=== PATIENT | female | born 1970 | race Caucasian/White ===

== ENCOUNTER → 2024-10-27 14:17 | Outpatient (ROUT) | payer SELFPAY ==
[2024-10-27 14:41] LABS: Appearance Urine UA CLOUDY; Bilirubin Urine UA NEGATIVE (NEGATIVE); Color Urine UA YELLOW; Glucose Urine UA 3+ g/dL (Negative); Ketones Urine UA NEGATIVE (NEGATIVE); Leukocyte Esterase Urine UA NEGATIVE (NEGATIVE); Nitrite Urine UA NEGATIVE (Negative); Occult Blood Urine UA TRACE-INTACT (Negative); Protein Urine UA 3+ (Negative); Urobilinogen Urine UA 0.2 E.U./dL (0.2)
[2024-10-27 14:54] LABS: RBC Urine 1-5/HPF (0-5/HPF); Urine Volume 10mL (spun); WBC Urine 30-100/HPF (0-5/HPF)
[2024-10-27 14:55] LABS: Bacteria Urine Many (>30); Culture Indicated Urine Specimen Cultured; Squamous Epithelial Cell Urine 0-1 /HPF (0-5/HPF)
== END ==
LOC: LAB 14:29
DX: R30.0 Dysuria (principal); R30.9 Painful micturition, unspecified
CPT/HCPCS: 81001; 87077; 87086; 87186

== ENCOUNTER → 2024-11-21 09:35 | Outpatient (ROUT) | payer SELFPAY ==
[2024-11-21 10:16] LABS: BUN Creatinine Ratio 33.8 (6-22); Blood Urea Nitrogen 51 mg/dL (7-17); Calcium 9.2 mg/dL (8.4-10.2); Carbon Dioxide 25 mmol/L (22-32); Chloride 106 mmol/L (98-107); Estimated Glomerular Filt Rate 41 mL/min (>60); Glucose 72 mg/dL (70-99); HEMOLYSIS < 15 (0-50); Potassium 4.7 mmol/L (3.4-5.1); Sodium 140 mmol/L (137-145)
[2024-11-21 10:25] LABS: Add Manual Diff / Slide Review NO; Basophils Absolute Auto 0 /uL (0-100); Basophils Percent Auto 0.6 % (0-2); Eosinophils Absolute Auto 200 /uL (0-450); Hematocrit 31.7 % (36-46); Hemoglobin 10.8 g/dL (12.0-16.0); Lymphocytes Absolute Auto 2200 /uL (1100-4500); Lymphocytes Percent Auto 28.8 % (25-40); Mean Corpuscular HGB Conc 34.1 % (30-36); Mean Corpuscular Hemoglobin 29.2 PG (26-34); Mean Corpuscular Volume 85.4 fL (80-100); Monocytes Absolute Auto 500 /uL (0-900); Monocytes Percent Auto 6.3 % (3-14); Neutrophils Absolute Auto 4700 /uL (1500-7000); Neutrophils Percent Auto 61.3 % (50-75); Platelet Count 267 X10^3/uL (150-400); Red Blood Cell Count 3.71 X10^6/uL (4.0-5.2); Red Cell Distribution Width 13.8 % (11.6-14.8); White Blood Cell Count 7.6 X10^3/uL (4.5-11.0)
== END ==
LOC: LAB 09:35
PROVIDERS: Visit Provider Registered Nurse
DX: E11.9 Type 2 diabetes mellitus without complications (principal); I50.9 Heart failure, unspecified
CPT/HCPCS: 36415; 80048; 83036; 85025

== ENCOUNTER → 2024-12-12 08:02 | Outpatient (ROUT) | payer SELFPAY ==
[2024-12-12 08:49] LABS: BUN Creatinine Ratio 31.9 (6-22); Blood Urea Nitrogen 43 mg/dL (7-17); Calcium 8.5 mg/dL (8.4-10.2); Carbon Dioxide 24 mmol/L (22-32); Chloride 102 mmol/L (98-107); Estimated Glomerular Filt Rate 46 mL/min (>60); Glucose 305 mg/dL (70-99); HEMOLYSIS < 15 (0-50); Potassium 5.1 mmol/L (3.4-5.1); Sodium 132 mmol/L (137-145)
[2024-12-12 09:20] LABS: Thyroid Stimulating Hormone 8.86 uIU/mL (0.47-4.68)
== END ==
PROVIDERS: Visit Provider Registered Nurse
DX: I50.9 Heart failure, unspecified (principal); E03.9 Hypothyroidism, unspecified
CPT/HCPCS: 36415; 80048; 83735; 84443

== ENCOUNTER → 2025-02-06 07:28 | Outpatient (ROUT) | payer SELFPAY ==
[2025-02-06 07:39] LABS: Hematocrit 31.8 % (36-46); Hemoglobin 10.9 g/dL (12.0-16.0); Mean Corpuscular HGB Conc 34.2 % (30-36); Mean Corpuscular Hemoglobin 29.1 PG (26-34); Mean Corpuscular Volume 85.1 fL (80-100); Platelet Count 254 X10^3/uL (150-400)
[2025-02-06 07:51] LABS: Blood Urea Nitrogen 49 mg/dL (7-17); Calcium 8.7 mg/dL (8.4-10.2); Carbon Dioxide 24 mmol/L (22-32); Chloride 103 mmol/L (98-107); Estimated Glomerular Filt Rate 35 mL/min (>60); Glucose 286 mg/dL (70-99); HEMOLYSIS < 15 (0-50); Potassium 4.7 mmol/L (3.4-5.1); Sodium 134 mmol/L (137-145)
[2025-02-06 08:01] LABS: NT-proBNP (BNP-Adult 18+) 740 pg/mL (<125)
== END ==
PROVIDERS: Visit Provider Registered Nurse
DX: I11.0 Hypertensive heart disease with heart failure (principal); I50.9 Heart failure, unspecified; R60.9 Edema, unspecified
CPT/HCPCS: 36415; 80048; 83880; 85027

== ENCOUNTER → 2025-03-18 10:09 | Outpatient (CLI) | payer MEDICAID, OTHER, SELFPAY | PROVIDERS: Family Provider Hospitalist; PCP Hospitalist; Referring Provider Registered Nurse; Visit Provider Surgery | DX: E11.621 Type 2 diabetes mellitus with foot ulcer (principal); L97.512 Non-pressure chronic ulcer of other part of right foot with fat layer exposed; L84 Corns and callosities; L98.8 Other specified disorders of the skin and subcutaneous tissue; E11.40 Type 2 diabetes mellitus with diabetic neuropathy, unspecified; I50.9 Heart failure, unspecified; E11.22 Type 2 diabetes mellitus with diabetic chronic kidney disease; N18.31 Chronic kidney disease, stage 3a; G40.009 Localization-related (focal) (partial) idiopathic epilepsy and epileptic syndromes with seizures of localized onset, not intractable, without status epilepticus | CPT/HCPCS: 11042; 87070; 87075; 87077; 87147; 87186; 87205; 99203; 99214 ==

== ENCOUNTER → 2025-03-20 13:11 | Outpatient (CLI) | payer OTHER, MEDICAID, SELFPAY ==
--- NOTE | 2025-03-20 13:16 | DI.RAD.S_ITS ---
PROCEDURE: XR FOOT RT MIN 3V INDICATIONS: non-healing ulcer right great toe TECHNIQUE: 3 views of the foot were acquired. COMPARISON: None. FINDINGS: Bones: Well-circumscribed radiolucent foci are present in the 1st proximal and distal phalanges: 1 cm proximal phalanges and 0.8 cm in the distal phalanges. These are most likely degenerative cysts. There would be atypical appearance for osteomyelitis Joints: Mild degeneration throughout the midfoot 1st MTP and all interphalangeal joints Soft tissues: Marked diffuse soft tissue swelling IMPRESSION: Marked diffuse soft swelling likely indicate cellulitis or less likely edema Radiolucent foci in the 1st proximal and distal phalanges are likely degenerative. If there is deep point tenderness in these bones , then consider MRI to evaluate for osteomyelitis Dictated by: Pedro Ahuja M.D. on 03/21/2025 at 10:58 Approved by: Pedro Ahuja M.D. on 03/21/2025 at 11:01
== END ==
LOC: RAD 13:14
PROVIDERS: Family Provider Hospitalist; PCP Hospitalist; Referring Provider Surgery; Visit Provider Surgery
DX: E11.621 Type 2 diabetes mellitus with foot ulcer (principal); M19.071 Primary osteoarthritis, right ankle and foot; M79.89 Other specified soft tissue disorders
CPT/HCPCS: 73630

== ENCOUNTER → 2025-03-21 10:57 | Outpatient (CLI) | payer OTHER, MEDICAID, SELFPAY | LOC: WC 10:57 | PROVIDERS: Family Provider Hospitalist; PCP Hospitalist; Referring Provider Hospitalist; Visit Provider Surgery | DX: E11.621 Type 2 diabetes mellitus with foot ulcer (principal); L97.512 Non-pressure chronic ulcer of other part of right foot with fat layer exposed; L84 Corns and callosities | CPT/HCPCS: 99213 ==

== ENCOUNTER → 2025-03-25 11:06 | Outpatient (CLI) | payer OTHER, MEDICAID, SELFPAY | LOC: WC 11:10 | PROVIDERS: Family Provider Hospitalist; PCP Hospitalist; Referring Provider Hospitalist; Visit Provider Surgery | DX: E11.621 Type 2 diabetes mellitus with foot ulcer (principal); L97.512 Non-pressure chronic ulcer of other part of right foot with fat layer exposed; L84 Corns and callosities; R60.0 Localized edema; E11.40 Type 2 diabetes mellitus with diabetic neuropathy, unspecified | CPT/HCPCS: 11042 ==

== ENCOUNTER → 2025-03-27 07:39 | Outpatient (ROUT) | payer OTHER, MEDICAID, SELFPAY ==
[2025-03-27 08:12] LABS: Blood Urea Nitrogen 52 mg/dL (7-17); Calcium 8.6 mg/dL (8.4-10.2); Carbon Dioxide 25 mmol/L (22-32); Chloride 105 mmol/L (98-107); Estimated Glomerular Filt Rate 31 mL/min (>60); Glucose 114 mg/dL (70-99); HEMOLYSIS < 15 (0-50); Magnesium 2.1 mg/dL (1.6-2.3); Potassium 4.4 mmol/L (3.4-5.1); Sodium 138 mmol/L (137-145)
== END ==
PROVIDERS: Family Provider Hospitalist; PCP Hospitalist; Visit Provider Registered Nurse
DX: R60.9 Edema, unspecified (principal); I10 Essential (primary) hypertension
CPT/HCPCS: 36415; 80048; 83735

== ENCOUNTER → 2025-04-02 15:02 | Outpatient (CLI) | payer OTHER, MEDICAID, SELFPAY | PROVIDERS: Family Provider Hospitalist; PCP Hospitalist; Referring Provider Hospitalist; Visit Provider Surgery | DX: E11.621 Type 2 diabetes mellitus with foot ulcer (principal); L97.512 Non-pressure chronic ulcer of other part of right foot with fat layer exposed; E11.42 Type 2 diabetes mellitus with diabetic polyneuropathy; L84 Corns and callosities; R60.0 Localized edema; Z91.198 Patient's noncompliance with other medical treatment and regimen for other reason | CPT/HCPCS: 11042 ==

== ENCOUNTER 2025-04-05 14:20 | Inpatient (IN) | payer OTHER, MEDICAID, SELFPAY ==
[2025-04-05] VITALS (17 sets, daily range): BP systolic 142–197; BP diastolic 76–163; PULSE 106–115; RESP 17–32; TEMP 36.9–39.4; O2SAT 90–94; BMI 47.2
--- NOTE | 2025-04-05 14:48 | EKG_ITS ---
[address] [address] Test Date: 2025-04-05 Pat Name: October Department: [facility] Room: Gender: Female Clerical Administrator: YARELIS : 1970 Requested By: Order Number: [id number] Reading MD: Pedro Kuhn MD Measurements Intervals [place] Rate: 114 P: 62 GA: 180 QRS: 220 QRSD: 144 T: 23 QT: 340 QTc: 468 Interpretive Statements Sinus tachycardia Right bundle branch block NO PRIOR TRACING Electronically Signed On 04-05-2025 16:37:30 PDT by Pedro Kuhn MD
--- NOTE | 2025-04-05 14:48 | DI.RAD.S_ITS ---
PROCEDURE: XR CHEST 2V INDICATIONS: generalized weakness TECHNIQUE: 2 views of the chest were acquired. COMPARISON: [facility], CR, XR CHEST 1 VIEW, 10/08/2024, 22:35. FINDINGS: Surgical changes and devices: None. Lungs and pleura: Prominent interstitial markings. No pleural effusions or pneumothorax. Mediastinum: Mediastinal contours are normal. Heart size is enlarged. Bones and chest wall: No suspicious bony abnormalities. Soft tissues appear unremarkable. IMPRESSION: Cardiomegaly with prominent interstitial markings concerning for pulmonary edema. Dictated by: Leo Chavez M.D. on 04/05/2025 at 16:02 Approved by: Leo Chavez M.D. on 04/05/2025 at 16:02
--- NOTE | 2025-04-05 14:53 | ED.WEAKNESS ---
HPI - Weakness General Chief complaint: Weakness Stated complaint: Weakness, n/v Time Seen by Provider: 04/05/25 14:48 Source: patient and EMS Mode of arrival: EMS Limitations: other (A&O x 2) History of Present Illness HPI Narrative: Patient is a 54-year-old female brought in by EMS from long term for generalized weakness. Past medical history significant for diabetes, hypertension, wound care through her right lower extremity. HPI obtained from EMS as well as patient who states that she has been not feeling well for the last 2 days to include generalized weakness, nausea, vomiting, and cough. She reports possible dyspnea as well as chest pain however states that she is not currently having any chest pain. History is limited due to patient's acute condition as well as her medical literacy. EMR data is very limited as patient has no other encounters in this medical system. Per medication review, she is on insulin, levothyroxine, aspirin, and gabapentin. Related Data Home Medications ?Medication ?Instructions ?Recorded ?Confirmed Unobtainable 04/05/25 04/05/25 Allergies Allergy/AdvReac Type Severity Reaction Status Date / Time No Known Drug Allergies Allergy Verified 04/05/25 14:51 Review of Systems Review of Systems Narrative: See HPI. Patient History Medical History (Updated 04/05/25 @ 18:03 by Efren Li MD) Diabetic peripheral neuropathy CKD (chronic kidney disease) Normocytic anemia Diabetes mellitus HTN (hypertension) Exam Initial Vital Signs Initial Vital Signs: Vital Signs Pulse Rate 114 H 04/05/25 14:43 Respiratory Rate 20 04/05/25 14:43 Pulse Oximetry 94 04/05/25 14:43 Patient tachycardic, tachypneic, meets SIRS criteria. Const Other: Appears disheveled, hair is matted and tangled. HENFL Head: normocephalic and atraumatic Mouth: other (Dry mucus membranes, fractured left anterior incisor.) Eyes Other: Open eyes to command. No lateralizing gaze. Chest Other: No rashes. Resp Other: Clear to auscultation bilaterally. No increased work of breathing. Cardio Other: Tachycardic with no murmurs rubs or gallops. GI Other: Obese, soft, nondistended, nontender to palpation, no rebound or guarding. Abdominal exam is not peritonitic. Other: Patient is wearing diaper, the skin was examined without any erythema or skin breakdown. Skin Other: Patient has chronic appearing excoriation in upper back. Aside from this, her skin appears normal. No sacral decubitus breakdown. Extrem Other: Bilateral upper extremity appears mildly to moderately contracted, she has a resting tremor. Right lower extremity heavily bandaged and wrapped. Dressing taken down, there is a eschar on the inferior lateral portion of the right great toe that appears well healed. She has no point tenderness at this area. Her entire left foot to her mid-proximal tibia has erythema with irregular borders that blanches and is warm to the touch. She has limited sensation in the right lower extremity, decreased sensation in the left. Bilateral nonpitting edema up to mid tibia. Motor intact bilaterally. Psych Other: Patient appears disheveled, her hair is very tangled. She otherwise is wearing a nightgown. Scores HEART Score Heart Score history: Slightly Suspicious Heart Score Age: 45-64 years old qSOFA 0-1 Not High Risk 1-3 High risk Citation:: Heart rate 114, respiratory rate 31, meets qSOFA score. Course Course Course Narrative: Patient is a 54-year-old female with a history of diabetes, hypertension, Decision to Admit Date: 04/05/25 Decision to Admit time: 17:17 Additional Information: Dr. Li called and accepted patient. Orders Ordered: ED Orders 04/05/25 14:48 CXR [XR chest 2V] Stat BNP [NT-proBNP (BNP-Adult 18+)] Stat Urinalysis and Microscopic Stat EKG-12 Lead Stat 04/05/25 14:52 VBG [Venous Blood Gas] STAT 04/05/25 14:53 Ketones (Beta-Hydroxybutyrate) Stat 04/05/25 15:16 Blood Culture Stat Complete Blood Count AUTO DIFF Stat Comprehensive Metabolic Panel Stat Lactate (Lactic Acid) Stat Procalcitonin Stat Respiratory Panel (Film Array) Stat Troponin & CK Cardiac Panel Stat 04/05/25 15:50 CT LE RT wo con Stat 04/05/25 16:38 Urine Culture Stat Enoxaparin Sodium (Enoxaparin 30 Mg/0.3 Ml Syringe) 30 mg SUBCUT DAILY WANDA Lactated Ringer's (Lactated Ringers) 1,641 mls @ 547 mls/hr 30 ml/kg infuse over 3 hr (1641 ml) IV NOW ONE Stop: 04/05/25 18:15 Last Infusion: 04/05/25 17:49 Dose: 0 mls/hr Vancomycin HCl/Dextrose (Vancomycin) 2,000 mg in 400 mls @ 200 mls/hr IV NOW ONE Stop: 04/05/25 18:34 Last Infusion: 04/05/25 17:49 Dose: 0 mls/hr Piperacillin Sod/Tazobactam (Sod 4.5 gm/ Sodium Chloride) 100 mls @ 25 mls/hr IV Q8H WANDA Sodium Chloride (Normal Saline 0.9%) 1,000 mls @ 100 mls/hr IV CONT WANDA Insulin Human Lispro (Insulin Lispro 100 Unit/Ml 3ml Vial) 0 unit SUBCUT ACHS WANDA; Protocol Naloxone HCl (Naloxone 0.4 Mg/Ml Vial) 0.2 mg IV Q2MIN PRN PRN Reason: Opiate Reversal Ondansetron HCl (Ondansetron 4 Mg/2 Ml Inj) 4 mg IV Q8HR PRN PRN Reason: Nausea And Vomiting Oxycodone HCl (Oxycodone Ir 5 Mg Tablet) 5 mg PO Q3H PRN PRN Reason: Pain, Moderate (4-6) Vancomycin HCl (Vancomycin Per Pharmacy) 1 request MISC NOW PRN PRN Reason: sepsis Discontinued Medications Piperacillin Sod/Tazobactam (Sod 4.5 gm/ Sodium Chloride) 100 mls @ 200 mls/hr IV NOW ONE Stop: 04/05/25 15:17 Last Infusion: 04/05/25 17:37 Dose: Infused Vancomycin HCl (Vancomycin Per Pharmacy) 1 request MISC NOW PRN PRN Reason: Diabetic wound, septic, cellut Reevaluation(s) Reevaluation #1: Patient meets criteria for SIRS with tachycardia, tachypnea, EMS temperature of 101F (although she was normal thermic in the ER). Will initiate sepsis protocol. Reevaluation #2: Patient re-evaluated. Elevated blood pressure reading secondary to 2 her laying on that extremity. Given pulmonary edema, tachypnea, elevated BNP, informed nursing staff to decrease fluid rate. I palpated the region where her diabetic foot ulcer was to determine if there was point tenderness, however patient has neuropathy is significant enough for her not to to be able to feel me palpating. Regardless, MRI should be considered when patient is admitted to evaluate for osteomyelitis. Reevaluation #3: Patient informed that she will be admitted to hospital for further care and management. Consultations Consultation #1: Patient admitted to hospitalist for further care and management. Vital Signs Vital signs: Vital Signs - 8 hr 04/05/25 14:43 04/05/25 14:44 04/05/25 14:44 Temperature Pulse Rate 114 H 115 H Respiratory Rate 20 31 H Blood Pressure 174/76 H Pulse Oximetry 94 93 Oxygen Delivery Method 04/05/25 14:51 04/05/25 15:00 04/05/25 15:05 Temperature 98.4 F Pulse Rate 115 H 115 H 114 H Respiratory Rate 18 32 H 30 H Blood Pressure 174/76 H Pulse Oximetry 93 93 94 Oxygen Delivery Method Room Air 04/05/25 15:05 04/05/25 15:42 04/05/25 15:50 Temperature Pulse Rate 114 H 113 H Respiratory Rate 28 H Blood Pressure 181/78 H Pulse Oximetry 94 94 Oxygen Delivery Method 04/05/25 15:50 04/05/25 16:00 04/05/25 16:01 Temperature Pulse Rate 113 H 113 H Respiratory Rate 26 H 22 Blood Pressure 172/88 H Pulse Oximetry 92 94 Oxygen Delivery Method 04/05/25 16:01 04/05/25 16:30 04/05/25 16:42 Temperature Pulse Rate 114 H 115 H Respiratory Rate 30 H 28 H Blood Pressure 190/91 H Pulse Oximetry 92 92 Oxygen Delivery Method 04/05/25 16:42 04/05/25 17:00 04/05/25 17:01 Temperature Pulse Rate 114 H 114 H Respiratory Rate 20 20 Blood Pressure 197/163 H Pulse Oximetry 94 94 Oxygen Delivery Method 04/05/25 17:01 Temperature Pulse Rate Respiratory Rate Blood Pressure 167/123 H Pulse Oximetry Oxygen Delivery Method MDM - Weakness Differential Diagnosis Differential diagnosis: Likely other (ACS, infection to include viral versus bacterial upper respiratory illness, urinary tract infection, cellulitis versus erysipelas, osteomyelitis, DKA, other.) Medical Records Medical records narrative: EMR reviewed. Patient does not have any records in this EHR. Plain films of the right foot obtained on 03/20/2025 was reviewed. At that time there was marked diffuse soft tissue swelling concerning for cellulitis versus edema. There was a radiolucent foci in the 1st proximal and distal phalanges that was read as degenerative. Chest x-ray obtained today had marked pulmonary interstitial markings concerning for pulmonary edema. Lab Data Lab results narrative: CBC with leukocytosis, left shift and neutrophilia. Patient is anemic (HBg 9.6 down from 10.9 on 02/06/25) down from baseline per EMR. No thrombocytopenia. CMP significant for hyperglycemia (glucose 179) SASHA (Cr 1.99), decreased GFR. BNP 1500. Alk-phos and total creatine kinase is elevated. Procalcitonin elevated at 1.16. 04/05/25 15:20 04/05/25 15:20 Labs: Lab Results 04/05/25 04/05/25 04/05/25 Range/Units 15:20 15:59 16:38 WBC 16.9 H (4.5-11.0) X10^3/uL RBC 3.42 L (4.0-5.2) X10^6/uL Hgb 9.6 L (12.0-16.0) g/dL Hct 28.8 L (36-46) % MCV 84.1 (80-100) fL MCH 28.2 (26-34) PG MCHC 33.5 (30-36) % RDW 13.5 (11.6-14.8) % Plt Count 221 (150-400) X10^3/uL Neut % (Auto) 93.2 H (50-75) % Lymph % (Auto) 3.1 L (25-40) % [place] % (Auto) 3.3 (3-14) % Eos % (Auto) 0.1 L (2-4) % Baso % (Auto) 0.3 (0-2) % Neut # (Auto) 03628 H (3030-6645) /uL Lymph # (Auto) 500 L (8805-4543) /uL [place] # (Auto) 600 (0-900) /uL Eos # (Auto) 0 (0-450) /uL Baso # (Auto) 100 (0-100) /uL Sodium 136 L (137-145) mmol/L Potassium 4.4 (3.4-5.1) mmol/L Chloride 102 (98-107) mmol/L Carbon Dioxide 25 (22-32) mmol/L BUN 59 H (7-17) mg/dL Creatinine 1.99 H (0.52-1.04) mg/dL Estimated GFR 29 L (>60) mL/min BUN/Creatinine Ratio 29.6 H (6-22) Glucose 179 H (70-99) mg/dL Lactate 0.9 (0.7-2.1) mmol/L Calcium 8.5 (8.4-10.2) mg/dL Total Bilirubin 0.5 (0.2-1.3) mg/dL AST 30 (14-36) IU/L ALT 23 (<35) IU/L Alkaline Phosphatase 186 H (38-126) U/L Total Creatine Kinase 189 H (30-135) U/L Troponin I < 0.012 (0.01-0.034) ng/mL NT-Pro-B Natriuret Pep 1500 H (<125) pg/mL Total Protein 7.6 (6.3-8.2) g/dL Albumin 3.9 (3.5-5.0) g/dL Globulin 3.7 (1.7-4.1) g/dL Albumin/Globulin Ratio 1.1 (1.0-2.8) Procalcitonin 1.16 H (<0.5) ng/mL Urine Color Yellow Urine Appearance Clear Urine pH 5.5 (4.5-8.0) Ur Specific [place] 1.015 (1.000-1.035) Urine Protein 3+ H (Negative) Urine Glucose (UA) 3+ H (Negative) g/dL Urine Ketones Negative (NEGATIVE) Urine Occult Blood 2+ H (Negative) Urine Nitrate Negative (Negative) Urine Bilirubin Negative (NEGATIVE) Urine Urobilinogen 0.2 (0.2) E.U./dL Ur Leukocyte Esterase Negative (NEGATIVE) Urine RBC 1-5/hpf (0-5/HPF) Urine WBC 10-30/hpf H (0-5/HPF) Ur Squamous Epith Cells None seen (0-5/HPF) Ur Transition Epith Cell None seen (0-5/HPF) Ur Renal Epithelial Cell None seen (0-1/HPF) Urine Bacteria Many (>30) H (None) Ur Culture Indicated? Specimen cultured Vol Urine Centrifuged 10ml (spun) Ketones 0.25 (<0.27) mmol/L Chlamy pneumoniae PCR Not detected (Not Detect) Adenovirus (PCR) Not detected (Not Detect) B. pertussis DNA (PCR) Not detected (Not Detect) B.parapertussis DNA PCR Not detected (Not Detecte) Coronavirus OC43 (PCR) Not detected (Not Detect) Coronavirus HKU1 (PCR) Not detected (Not Detect) Coronavirus 229E (PCR) Not detected (Not Detect) SARS-CoV-2 (PCR) Not detected (Not Detecte) Coronavirus NL63 (PCR) Not detected (Not Detect) Human Metapneumovir PCR Not detected (Not Detect) Influenza Type A (PCR) Not detected (Not Detect) Influenza Type B (PCR) Not detected (Not Detect) M. pneumoniae (PCR) Not detected (Not Detect) Parainfluenza 1 (PCR) Not detected (Not Detect) Parainfluenza 2 (PCR) Not detected (Not Detect) Parainfluenza 3 (PCR) Not detected (Not Detect) Parainfluenza 4 (PCR) Not detected (Not Detect) RSV (PCR) Not detected (Not Detect) Entero/Rhino (PCR) Not detected (Not Detect) Imaging Data CT right lower extremity without concerns for osteomyelitis.: My Impression: There is some diffuse subcutaneous soft tissue stranding and skin thickening in the distal right lower extremity. Given these findings as well as patient's clinical exam of erythema and warmth, more likely consistent with cellulitis versus edema. Radiologist Impression: No?findings?concerning?for?osteomyelitis.??Diffuse?subcutaneous?edema?and?skin?thickening,?most?pronounced?within?the?foot?and?1st?digit?concerning?for?cellulitis?versus?bland?edema,?recommend?clinical?correlation.??No?organized?fluid?collections ECG Data Interpretation: 16:22: EKG with sinus tachycardia, heart rate 114, normal intervals, right bundle branch block. No other EKGs in cardio server systems administrator to compare to. [facility] Narrative Medical decision making narrative: Patient is a 54-year-old female presents via EMS from [facility] with history of diabetes complicated by neuropathy and diabetic foot ulcer and her right great toe undergoing wound care, hypothyroidism, with 2 day history of generalized weakness, nausea, vomiting. On initial presentation by EMS, patient was hypertensive SBP 180s, Tm 101? F, and an elevated glucose. Upon initial evaluation, patient remained hypertensive in the 180s, tachycardic to 114, tachypneic in the 30s, she was normothermic. Sepsis protocol was initiated and fluids and Zosyn was ordered. Her physical exam findings was significant for A&O x 2 (she knew she was at the hospital, Leann was president, thought it was 1950s). Physical exam finding was significant for eschar on her inferior right great toe with warmth and erythema of her right lower extremity extending to the mid proximal tibia. Given these findings as well as patient's history of diabetes, vancomycin was added. Labs were significant for leukocytosis with left shift, mild anemia, no thrombocytopenia. Her glucose was 179, and she had an SASHA (Cr 1.99) with decreased GFR, elevated alkaline phosphatase, elevated creatinine kinase, proBNP 1500, pro maurizio 1.16. Her troponins were undetectable with an EKG revealing sinus tachycardia and a right bundle branch block. Chest x-ray was consistent with pulmonary edema, therefore the rate of her fluids was decreased. I reviewed her prior right foot x-ray with possible foci concerning for osteomyelitis. Given patient's was insensate in her lower extremities, CT scan was obtained and consistent with cellulitis. Patient was admitted to Dr. Li for further care and management. Critical Care Time Critical Care Time Attestation: 45 minutes: Evaluating patient, obtaining information from assisted living facility. Discharge Plan Departure Patient Disposition: Admitted As Inpatient Clinical Impression: Sepsis, Elevated brain natriuretic peptide (BNP) level, SASHA (acute kidney injury), Pulmonary edema, Cellulitis Admit Date/Time: 04/05/25 17:18 Admit Provider: Efren Li
[2025-04-05 15:33] LABS: Add Manual Diff / Slide Review NO; Hematocrit 28.8 % (36-46); Hemoglobin 9.6 g/dL (12.0-16.0); Lymphocytes Absolute Auto 500 /uL (1100-4500); Mean Corpuscular HGB Conc 33.5 % (30-36); Mean Corpuscular Hemoglobin 28.2 PG (26-34); Mean Corpuscular Volume 84.1 fL (80-100); Platelet Count 221 X10^3/uL (150-400)
[2025-04-05 15:49] LABS: Alanine Aminotransferase 23 IU/L (<35); Albumin 3.9 g/dL (3.5-5.0); Albumin Globulin Ratio 1.1 (1.0-2.8); Alkaline Phosphatase 186 U/L (38-126); Blood Urea Nitrogen 59 mg/dL (7-17); Calcium 8.5 mg/dL (8.4-10.2); Carbon Dioxide 25 mmol/L (22-32); Chloride 102 mmol/L (98-107); Creatine Kinase 189 U/L (30-135); Estimated Glomerular Filt Rate 29 mL/min (>60); Globulin 3.7 g/dL (1.7-4.1); Glucose 179 mg/dL (70-99); HEMOLYSIS < 15 (0-50); Potassium 4.4 mmol/L (3.4-5.1); Sodium 136 mmol/L (137-145); Total Protein 7.6 g/dL (6.3-8.2)
[2025-04-05 15:50] LABS: Lactate (Lactic Acid) 0.9 mmol/L (0.7-2.1)
--- NOTE | 2025-04-05 15:50 | DI.CT.S_ITS ---
PROCEDURE: CT LE RT WO CON INDICATIONS: r/o osteomyelitis TECHNIQUE: Noncontrast 3 mm axial sections acquired of the right lower lobe , with coronal and sagittal reformats. COMPARISON: None. FINDINGS: Image quality: Excellent. Bones: No acute osseous abnormalities. No erosive changes are seen. No acute fractures. Significant degenerative changes of the left midfoot, incompletely evaluated. Soft tissues: Mild diffuse subcutaneous stranding and skin thickening, most pronounced involving the foot and 1st digit. No organized fluid collections. IMPRESSION: No findings concerning for osteomyelitis. Diffuse subcutaneous edema and skin thickening, most pronounced within the foot and 1st digit concerning for cellulitis versus bland edema, recommend clinical correlation. No organized fluid collections. Dictated by: Leo Chavez M.D. on 04/05/2025 at 16:40 Approved by: Leo Chavez M.D. on 04/05/2025 at 16:44
[2025-04-05 15:55] LABS: Ketones (Beta-Hydroxybutyrate) 0.25 mmol/L (<0.27)
[2025-04-05] MEDS: LACTATED RINGERS 547 ML IV (15:57)
[2025-04-05 15:59] LABS: NT-proBNP (BNP-Adult 18+) 1500 pg/mL (<125)
[2025-04-05 16:01] LABS: Troponin I < 0.012 ng/mL (0.01-0.034)
[2025-04-05 16:05] LABS: Procalcitonin 1.16 ng/mL (<0.5)
[2025-04-05 16:51] LABS: Appearance Urine UA CLEAR; Bilirubin Urine UA NEGATIVE (NEGATIVE); Color Urine UA YELLOW; Glucose Urine UA 3+ g/dL (Negative); Ketones Urine UA NEGATIVE (NEGATIVE); Leukocyte Esterase Urine UA NEGATIVE (NEGATIVE); Nitrite Urine UA NEGATIVE (Negative); Occult Blood Urine UA 2+ (Negative); Protein Urine UA 3+ (Negative); Specific Gravity Urine UA 1.015 (1.000-1.035); Urobilinogen Urine UA 0.2 E.U./dL (0.2)
[2025-04-05 16:52] LABS: pH Urine UA 5.5 (4.5-8.0)
[2025-04-05 16:59] LABS: Coronavirus NL 63 Not Detected (Not Detect); SARS- CoV-2 Not Detected (Not Detecte)
[2025-04-05] MEDS: PIPERACILLIN/TAZO 4.5 GM in SODIUM CHLORIDE 0.9% 100 ML IV (17:07)
[2025-04-05] MEDS: VANCOMYCIN 2,000 MG/400 ML PIGGYBACK 200 MG IV (17:21)
--- NOTE | 2025-04-05 17:26 | P.HP_ITS ---
History of Present Illness History of Present Illness Date Patient Seen: 04/05/25 Time Patient Seen: 17:26 Chief complaint: Weakness, n/v Narrative: This is a 54 year old female with a history of HTN, peripheral neuropathy and DM who presents with 2 days of nausea/vomiting, a new fever, a right large toe ulcer with related cellulitis and acute worsened mental status. She is oriented to name and place but per her assisted living facility staff is normally fully oriented. She is unable to answer questions with any pertinent facts. She says she does not have a PCP, that she takes no medicines but also says that she has had diabetes. Transition Mgr Rn reports that they were called for 2 days of nausea and vomiting and when they arrived she had a fever of 101, heart rate of 114 and a blood pressure of 181/78 with a respiratory rate of 30. She is receiving a sepsis protocol for her cellulitis. CT scan rules out osteomyelitis at the right large toe ulcer. The white blood count is 16.9 with a hemoglobin of 9.6. The GFR is 29, down from a baseline of 46 earlier this year. The BNP is 1500 and the chest x-ray is consistent with pulmonary edema. The UA has 10-30 wbc's with negative nitrite and negative leukocyte esterase. Physical exam: Alert and oriented to name and location. She is unable to answer more than minimal responses to historical and factual questions. No apparent distress. She is unable to keep her eyes open for a visual check. She is unable to open her mouth very wide. She is experiencing poor dentition. Extraocular muscles and pupillary response can not be accurately checked. No lymph nodes are felt head, neck, supraclavicular area. There is no thyromegaly. JVD is less than 6 cm. No carotid bruits are heard. Heart is regular rate and rhythm without murmur. Lungs are clear to auscultation bilaterally. Abdomen is extremely obese, nontender, no definite organomegaly. Soft. Extremities have 2+ pitting edema bilaterally. There is a very small dry ulceration on the medial side of the right large toe. She has diffuse picking of the skin consistent with cellulitis up to above the knee on that side. The other side looks normal color. Motor function is difficult to assess but appears to be symmetric. Cranial nerve function is also difficult to assess but appears to be normal. There is no tremor. Reflexes are symmetric. Assessment and plan: Right lower extremity diabetic ulcer/cellulitis/sepsis, present on admission. Active. -IV vancomycin and Zosyn. IV fluid. -03/18 wound culture reported as Proteus and MRSA. -lactic acid 0.9 with white blood count 16 0.9 -correctional insulin scale for optimization of blood sugars for healing. -CT scan rules out osteomyelitis of the small ulcer of the right large toe. -blood cultures are pending Diabetes mellitus type 2, present on admission. Chronic. -blood sugars are in the mid to high 100s. -Check A1c, follow up blood sugars a.c. HS, carb choice diet and medium dose correctional lispro scale. Congestive heart failure, present on admission. Active. -no known history of prior congestive heart failure. -elevated BNP of 1500 along with chest x-ray evidence of pulmonary edema. -check echocardiogram -once the sepsis protocol and recovery is confirmed then she will likely need diuresis. Hypertension, present on admission. Active. -assess blood pressure over the next 24 hours and add medication treatment as indicated. Cognitive dysfunction/altered mental status, present on admission. Active. -her facility reports that she is normally fully oriented and conversant. -on admission she is unable to accurately discuss or answer questions. -consider head CT if this does not improve with treatment of the cellulitis/sepsis CKD 3 with SASHA -admitting GFR 29, down from a baseline of 46. -hydrate with IV fluid and follow. DVT prevention with renal dosing enoxaparin. [facility] Medical History (Updated 04/05/25 @ 18:03 by Efren Li MD) Diabetic peripheral neuropathy CKD (chronic kidney disease) Normocytic anemia Diabetes mellitus HTN (hypertension) Social History Smoking Status: Former smoker Comment: The patient gives a history of 2 prior surgeries but is unable to remember which ones. She is unable to discuss her family history stating ?that is private?. She drinks alcohol rarely and does not smoke cigarettes. She does not know why she lives at the assisted living facility at this relatively young age but states ?I would be homeless if I did not live there ?. Meds Home Medications and Allergies Home Medications ?Medication ?Instructions ?Recorded ?Confirmed ?Type Unobtainable 04/05/25 04/05/25 History Allergies Allergy/AdvReac Type Severity Reaction Status Date / Time No Known Drug Allergies Allergy Verified 04/05/25 14:51 Review of Systems Review of Systems Narrative: Positive for fever, rash, nausea, vomiting, confusion, poor memory. Negative for chest pain, shortness breast, nausea, vomiting, abdominal pain, dysuria, bleeding, headache, seizures. Exam Vital Signs (past 8 hours): - 04/05/25 14:43 04/05/25 14:44 04/05/25 14:44 Temperature Pulse Rate 114 H 115 H Respiratory Rate 20 31 H Blood Pressure 174/76 H Pulse Oximetry 94 93 Oxygen Delivery Method 04/05/25 14:51 04/05/25 15:00 04/05/25 15:05 Temperature 98.4 F Pulse Rate 115 H 115 H 114 H Respiratory Rate 18 32 H 30 H Blood Pressure 174/76 H Pulse Oximetry 93 93 94 Oxygen Delivery Method Room Air 04/05/25 15:05 Temperature Pulse Rate Respiratory Rate Blood Pressure 181/78 H Pulse Oximetry Oxygen Delivery Method Oxygen Delivery Method Room Air Objective Labs 04/05/25 15:20 04/05/25 15:20 Labs: Laboratory Results - last 24 hr 04/05/25 04/05/25 04/05/25 15:20 15:59 16:38 WBC 16.9 H RBC 3.42 L Hgb 9.6 L Hct 28.8 L MCV 84.1 MCH 28.2 MCHC 33.5 RDW 13.5 Plt Count 221 Neut % (Auto) 93.2 H Lymph % (Auto) 3.1 L Schleicher % (Auto) 3.3 Eos % (Auto) 0.1 L Baso % (Auto) 0.3 Neut # (Auto) 62543 H Lymph # (Auto) 500 L Schleicher # (Auto) 600 Eos # (Auto) 0 Baso # (Auto) 100 Sodium 136 L Potassium 4.4 Chloride 102 Carbon Dioxide 25 BUN 59 H Creatinine 1.99 H Estimated GFR 29 L BUN/Creatinine Ratio 29.6 H Glucose 179 H Lactate 0.9 Calcium 8.5 Total Bilirubin 0.5 AST 30 ALT 23 Alkaline Phosphatase 186 H Total Creatine Kinase 189 H Troponin I < 0.012 NT-Pro-B Natriuret Pep 1500 H Total Protein 7.6 Albumin 3.9 Globulin 3.7 Albumin/Globulin Ratio 1.1 Procalcitonin 1.16 H Urine Color Yellow Urine Appearance Clear Urine pH 5.5 Ur Specific Hindman 1.015 Urine Protein 3+ H Urine Glucose (UA) 3+ H Urine Ketones Negative Urine Occult Blood 2+ H Urine Nitrate Negative Urine Bilirubin Negative Urine Urobilinogen 0.2 Ur Leukocyte Esterase Negative Ketones 0.25 Chlamy pneumoniae PCR Not detected Adenovirus (PCR) Not detected B. pertussis DNA (PCR) Not detected B.parapertussis DNA PCR Not detected Coronavirus OC43 (PCR) Not detected Coronavirus HKU1 (PCR) Not detected Coronavirus 229E (PCR) Not detected SARS-CoV-2 (PCR) Not detected Coronavirus NL63 (PCR) Not detected Human Metapneumovir PCR Not detected Influenza Type A (PCR) Not detected Influenza Type B (PCR) Not detected M. pneumoniae (PCR) Not detected Parainfluenza 1 (PCR) Not detected Parainfluenza 2 (PCR) Not detected Parainfluenza 3 (PCR) Not detected Parainfluenza 4 (PCR) Not detected RSV (PCR) Not detected Entero/Rhino (PCR) Not detected Assessment & Plan Time-Based Coding :: [TOTAL MINUTES] spent with patient and on the chart (including review of chart, obtaining history, exam, reviewing outside data, placing orders, documenting exam and treatment plan, and counseling patient) on [DATE].
[2025-04-05 17:36] LABS: Culture Indicated Urine Specimen Cultured
--- NOTE | 2025-04-05 17:57 | DI.ECHO.S_ITS ---
[facility] : : [id number] : : [place], : : [place] [id number] : : Phone: [phone] Echocardiogram Report + + :Name: ELLIOTTOctober Study Date: 04/06/2025 Height: 61 in : :[facility] ReadingLocation: Weight: 250 lb : : Gender: Female BSA: 2.1 m2 : :: 1970 Age: 54 yrs BP: 141/70 mmHg: :Reason For Study: CHF : :Ordering Physician: MICHELLE, : :HIGINIO Peralta Performed By: Edgardo Zamora : :Referring: HIGINIO MARTINEZ : + + Interpretation Summary This is a somewhat technically difficult study because patient was not able to lay on her left side. Scanning was done laying on her back and leaning to the right side. Study was enhanced with Definity echo contrast. Normal sinus rhythm with wide QRS complexes. Normal LV size and moderately increased wall thickness. Normal wall motion and LV systolic function. Ejection fraction is 60-65%. Normal chamber sizes. No significant valvular abnormalities. Compared to prior echocardiogram performed at [facility] in [facility], no changes have occurred. Procedure: A two-dimensional transthoracic echocardiogram with color flow and Doppler was performed. A contrast injection of Definity was performed to improve assessment of LV function. The study quality was technically difficult. There is no prior echocardiogram noted for this patient. The patient was in normal sinus rhythm during the exam. Left Ventricle: The left ventricle is normal in size. Left ventricular wall thickness is moderately increased. There is no ventricular septal defect visualized. The ejection fraction is estimated to be 50-55%. There are no focal wall motion abnormalities. Diastolic parameters suggest probable normal left ventricular diastolic function and normal filling pressures. Right Ventricle: The right ventricle is not well visualized. Atria: The left atrial size is normal. Right atrium not well visualized secondary to technical limitations. The interatrial septum is not well visualized. Mitral Valve: The mitral valve leaflets appear mildly thickened. There is no mitral regurgitation noted. Aortic Valve: The aortic valve is trileaflet. The aortic valve is slightly calcified. No aortic regurgitation is present. Tricuspid Valve: The tricuspid valve is not well visualized. No tricuspid regurgitation. Pulmonic Valve: The pulmonic valve is not well seen, but is grossly normal. There is no pulmonic valvular regurgitation. Great Vessels: The aortic root is normal size. The dimensions of the ascending aorta are normal. The pulmonary is not well visualized. The IVC is of normal diameter and collapses greater than 50% with a sniff. This suggests a low right atrial pressure of 3 mm Hg. Pericardium/ Pleura There is no pericardial effusion. MMode/2D Measurements & Calculations LVIDd: 4.9 cm AoV Openin.8 cm LVIDs: 3.1 cm LVOT diam: 2.1 cm IVSd: 1.6 cm Ao root diam: 3.2 cm LVPWd: 1.5 cm asc Aorta Diam: 3.1 cm LV francis. diameter/BSA (cm/m^2): 2.3 LV sys. diameter/BSA (cm/m^2): 1.5 FS: 36.8 % EPSS: 0.86 cm LA A2 area: 16.9 cm2 IVC diam: 2.0 cm LA A4 area: 22.2 cm2 LA length (vol): 6.4 cm LA vol: 49.9 ml LA vol index: 24.0 ml/m2 Doppler Measurements & Calculations Ao V2 max: 158.9 cm/sec LVOT Max Kirill: 94.4 cm/sec Ao V2 mean: 118.1 cm/sec LV V1 max P.6 mmHg Ao V2 VTI: 31.9 cm LV V1 VTI: 21.3 cm Ao max P.1 mmHg Ao mean P.0 mmHg ALBERT(I,D): 2.2 cm2 MV E max kirill: 86.3 cm/sec ALBERT(V,D): 2.0 cm2 MV A max kirill: 72.6 cm/sec ALBERT indexed to BSA (cm^2/m^2): 1.1 MV E/A: 1.2 sev ratio: 0.67 Med Peak E' Ikrill: 4.8 cm/sec E/E' med: 18.1 Lat Peak E' Kirill: 9.0 cm/sec E/E' lat: 9.6 E/e' average: 13.9 MV dec time: 0.18 sec PA V2 max: 87.3 cm/sec PA V2 mean: 68.3 cm/sec PA mean P.0 mmHg PA pr(Accel): 25.9 mmHg SV(LVOT): 70.2 ml Electronically signed by: Ryann Carrillo M.D. on Reading Physician:04/06/2025 03:26 PM
[2025-04-05 18:31] LABS: Hemoglobin A1C% w Est Avg Glu 8.4 % (4.0-6.0)
[2025-04-05] MEDS: ACETAMINOPHEN 325 MG TABLET 975 MG PO (20:03)
[2025-04-05] MEDS: SODIUM CHLORIDE 0.9% 1,000 ML 100 ML IV (20:20)
[2025-04-05] MEDS: PIPERACILLIN/TAZO 3.375 GM in SODIUM CHLORIDE 0.9% 100 ML IV (21:33)
[2025-04-05] MEDS: HEPARIN 5,000 UNIT/ML VIAL 5000 UNIT SUBCUT (21:33)
[2025-04-06 00:16] VITALS: BP 116/67; PULSE 89; RESP 19; TEMP 36.1; O2SAT 92
[2025-04-06 04:00] VITALS: BP 146/73; PULSE 83; RESP 18; O2SAT 99
[2025-04-06] MEDS: PIPERACILLIN/TAZO 3.375 GM in SODIUM CHLORIDE 0.9% 100 ML IV ×3 (05:16→20:52)
[2025-04-06] MEDS: HEPARIN 5,000 UNIT/ML VIAL 5000 UNIT SUBCUT ×2 (05:16→20:52)
[2025-04-06 05:34] LABS: Add Manual Diff / Slide Review NO; Hematocrit 26.9 % (36-46); Hemoglobin 9.1 g/dL (12.0-16.0); Lymphocytes Absolute Auto 1100 /uL (1100-4500); Mean Corpuscular HGB Conc 33.8 % (30-36); Mean Corpuscular Hemoglobin 28.7 PG (26-34); Mean Corpuscular Volume 85.0 fL (80-100); Platelet Count 196 X10^3/uL (150-400)
[2025-04-06 05:42] LABS: Alanine Aminotransferase 33 IU/L (<35); Albumin 3.2 g/dL (3.5-5.0); Albumin Globulin Ratio 0.9 (1.0-2.8); Alkaline Phosphatase 150 U/L (38-126); Blood Urea Nitrogen 57 mg/dL (7-17); Calcium 7.7 mg/dL (8.4-10.2); Carbon Dioxide 24 mmol/L (22-32); Chloride 104 mmol/L (98-107); Estimated Glomerular Filt Rate 26 mL/min (>60); Globulin 3.4 g/dL (1.7-4.1); Glucose 169 mg/dL (70-99); HEMOLYSIS < 15 (0-50); Potassium 3.7 mmol/L (3.4-5.1); Sodium 137 mmol/L (137-145); Total Protein 6.6 g/dL (6.3-8.2)
[2025-04-06] MEDS: SODIUM CHLORIDE 0.9% 1,000 ML 100 ML IV ×2 (06:16→18:25)
[2025-04-06 08:00] VITALS: BP 141/70; PULSE 98; RESP 17; TEMP 36.4; O2SAT 98
[2025-04-06] MEDS: INSULIN LISPRO 100 UNIT/ML 3ML VIAL SUBCUT ×3 (09:23→16:48)
[2025-04-06] MEDS: DOCUSATE 100 MG CAPSULE PO ×2 (09:24→20:52)
--- NOTE | 2025-04-06 10:15 | PC.NURSE ---
Upon assessment, pt stated that Swartz catheter was causing discomfort. Checked placement; Swartz in place and secure. Pt stated she did not understand why she had catheter placed. Explained that this RN received in report that she had been retaining 700mL+. Pt stated she did not want to have catheter; informed MD Goodson. No new orders at this time. Informed MD Goodson that pt has CHF but is currently on NS 100mL/hr d/t SASHA; no new orders at this time. During breakfast, pt stated that she did not want to sit up, that she preferred to lean over the side of bedrail and eat with her hands rather than silverware because she was half chapo. Offered to help reposition pt for ease of eating; pt declined.
[2025-04-06 12:00] VITALS: BP 143/70; PULSE 74; RESP 14; TEMP 36.8; O2SAT 97
--- NOTE | 2025-04-06 14:13 | CM.DANOTE ---
Initial DCP Assessment Note. Review EMR and PT Interview. Met with patient at bedside to discuss discharge needs.PT is alert x 4 sitting up in bed. No acute distress. Patient lives at [facility]. Patient uses walker. Payor:? [facility] PCP: Francesco Salomon Summary & Plan:?54 y/o female arrived to ED via ambulance c/o generalized weakness, N/V, and cough. Admitted INPT Dx. RLE Cellulitis. Plan: IV ABO, Urine Cx, Bld Cx, Wound, Cx. Possible Wound Consult. Discharge Planning/Care Management CM Discharge Assessment Start: 04/05/25 18:02 Freq: Status: Active Protocol: Document 04/06/25 14:08 (Rec: 04/06/25 14:13 [id number]) Discharge Planning Assessment Assigned Discharge Africa Benavides RN CM [employer] Consultant Provider Dr. Francesco Salomon [facility] Advance Directives? No History Provided By Patient,Medical Record Has Patient been No admitted in last 30 days? Prior Living Assisted Living Arrangements Comment [facility] Household Members none Type of Relies on Others transporation used prior to admit Facility Name [facility] Admitted From: Willing to Return to Yes Facility? Independent with ADL No 's Is patient alert and Yes oriented? Needs Assistance Bathing,Grooming,Meal Prep,Toileting,Managing With Medications,Home Chores / Shopping Community Services Wound Care used prior to admission: DME Already Rented / FWW / Walker Owned Referrals Initiated Other Additional Comment wound clinic Review Status In Process Please Provide Date 04/06/25 Initial DC Assessment Was Performed Next Review Type Continued Stay Review
[2025-04-06 16:50] VITALS: BP 143/79; PULSE 70; RESP 15; TEMP 36; O2SAT 99
--- NOTE | 2025-04-06 16:52 | P.PN_ITS ---
Subjective Subjective Date Patient Seen: 04/06/25 Interval history: Chief complaint: Confusion nausea and vomiting and right toe ulcer History of present illness: 04/05: This is a 54 year old female with a history of HTN, peripheral neuropathy and DM who presents with 2 days of nausea/vomiting, a new fever, a right large toe ulcer with related cellulitis and acute worsened mental status. She is oriented to name and place but per her assisted living facility staff is normally fully oriented. She is unable to answer questions with any pertinent facts. She says she does not have a PCP, that she takes no medicines but also says that she has had diabetes. [employer] reports that they were called for 2 days of nausea and vomiting and when they arrived she had a fever of 101, heart rate of 114 and a blood pressure of 181/78 with a respiratory rate of 30. She is receiving a sepsis protocol for her cellulitis. CT scan rules out osteomyelitis at the right large toe ulcer. The white blood count is 16.9 with a hemoglobin of 9.6. The GFR is 29, down from a baseline of 46 earlier this year. The BNP is 1500 and the chest x-ray is consistent with pulmonary edema. The UA has 10-30 wbc's with negative nitrite and negative leukocyte esterase. Findings of cellulitis and infected diabetic ulcer of right lower leg Hospital course: 04/06: Significant improvement in mentation no longer in pain no longer vomiting appetite is coming back cellulitis is improving Interpretation Summary This is a somewhat technically difficult study. Normal sinus rhythm with wide QRS complexes. Normal LV size and moderately increased wall thickness. Normal wall motion and LV systolic function. Ejection fraction is 60-65%. Normal chamber sizes. No significant valvular abnormalities. Compared to prior echocardiogram performed at [facility] in [facility], no changes have occurred. Assessment and plan: Right lower extremity diabetic ulcer/cellulitis/sepsis, present on admission. Active. * -IVvancomycin and Zosyn. IV fluid. * -03/18 wound culture reported as Proteus and MRSA. * -lactic acid 0.9 with white blood count 16 0.9 * -correctional insulin scale for optimization of blood sugars for healing. * -CT scan rules out osteomyelitis of the small ulcer of the right large toe. * -blood cultures are pending Diabetes mellitus type 2, present on admission. Chronic. * -blood sugars are in the mid to high 100s. * -Check A1c, follow up blood sugars a.c. HS, carb choice diet and medium dose correctional lispro scale. Congestive heart failure, present on admission. Active. * -no known history of prior congestive heart failure. * -elevated BNP of 1500 along with chest x-ray evidence of pulmonary edema. * -check echocardiogram * -once the sepsis protocol and recovery is confirmed then she will likely need diuresis. Hypertension, present on admission. Active. * -assess blood pressure over the next 24 hours and add medication treatment as indicated. Cognitive dysfunction/altered mental status, present on admission. Active. * -her facility reports that she is normally fully oriented and conversant. * -on admission she is unable to accurately discuss or answer questions. * -consider head CT if this does not improve with treatment of the cellulitis/sepsis CKD 3 with SASHA * -admitting GFR 29, down from a baseline of 46. * -hydrate with IV fluid and follow. DVT prophylaxis * With renal dosing enoxaparin. Code status: * Full code blue Disposition: * Inpatient anticipate 48 hours of inpatient care after which will assess further care needs 38 minutes involved in managing this patient including direct [id number] evaluation of the patient review of images records and objective laboratory findings Exam Vital Signs (past 8 hours): - 04/06/25 12:00 04/06/25 16:50 Temperature 98.2 F 96.8 F L Pulse Rate 74 70 Respiratory Rate 14 15 Blood Pressure 143/70 H 143/79 H Pulse Oximetry 97 99 Oxygen Flow Rate 0 Oxygen Delivery Method Room Air Oxygen Flow Rate 0 Objective Labs 04/06/25 05:15 04/06/25 05:15 Labs: Laboratory Results - last 24 hr 04/05/25 04/05/25 04/05/25 15:20 15:59 16:38 WBC RBC Hgb Hct MCV MCH MCHC RDW Plt Count Neut % (Auto) Lymph % (Auto) Conway % (Auto) Eos % (Auto) Baso % (Auto) Neut # (Auto) Lymph # (Auto) Conway # (Auto) Eos # (Auto) Baso # (Auto) Sodium Potassium Chloride Carbon Dioxide BUN Creatinine Estimated GFR BUN/Creatinine Ratio Glucose POC Whole Bld Glucose Hemoglobin A1c 8.4 H Calcium Total Bilirubin AST ALT Alkaline Phosphatase Total Protein Albumin Globulin Albumin/Globulin Ratio Urine Color Yellow Urine Appearance Clear Urine pH 5.5 Ur Specific Dora 1.015 Urine Protein 3+ H Urine Glucose (UA) 3+ H Urine Ketones Negative Urine Occult Blood 2+ H Urine Nitrate Negative Urine Bilirubin Negative Urine Urobilinogen 0.2 Ur Leukocyte Esterase Negative Urine RBC 1-5/hpf Urine WBC 10-30/hpf H Ur Squamous Epith Cells None seen Ur Transition Epith Cell None seen Ur Renal Epithelial Cell None seen Urine Bacteria Many (>30) H Ur Culture Indicated? Specimen cultured Vol Urine Centrifuged 10ml (spun) Chlamy pneumoniae PCR Not detected Adenovirus (PCR) Not detected B. pertussis DNA (PCR) Not detected B.parapertussis DNA PCR Not detected Coronavirus OC43 (PCR) Not detected Coronavirus HKU1 (PCR) Not detected Coronavirus 229E (PCR) Not detected SARS-CoV-2 (PCR) Not detected Coronavirus NL63 (PCR) Not detected Human Metapneumovir PCR Not detected Influenza Type A (PCR) Not detected Influenza Type B (PCR) Not detected M. pneumoniae (PCR) Not detected Parainfluenza 1 (PCR) Not detected Parainfluenza 2 (PCR) Not detected Parainfluenza 3 (PCR) Not detected Parainfluenza 4 (PCR) Not detected RSV (PCR) Not detected Entero/Rhino (PCR) Not detected 04/05/25 04/06/25 04/06/25 20:07 05:15 08:01 WBC 13.9 H RBC 3.16 L Hgb 9.1 L Hct 26.9 L MCV 85.0 MCH 28.7 MCHC 33.8 RDW 13.9 Plt Count 196 Neut % (Auto) 87.3 H Lymph % (Auto) 8.0 L Conway % (Auto) 4.5 Eos % (Auto) 0.0 L Baso % (Auto) 0.2 Neut # (Auto) 96068 H Lymph # (Auto) 1100 Conway # (Auto) 600 Eos # (Auto) 0 Baso # (Auto) 0 Sodium 137 Potassium 3.7 Chloride 104 Carbon Dioxide 24 BUN 57 H Creatinine 2.19 H Estimated GFR 26 L BUN/Creatinine Ratio 26.0 H Glucose 169 H POC Whole Bld Glucose 131 H 153 H Hemoglobin A1c Calcium 7.7 L Total Bilirubin 0.5 AST 61 H ALT 33 Alkaline Phosphatase 150 H Total Protein 6.6 Albumin 3.2 L Globulin 3.4 Albumin/Globulin Ratio 0.9 L Urine Color Urine Appearance Urine pH Ur Specific Dora Urine Protein Urine Glucose (UA) Urine Ketones Urine Occult Blood Urine Nitrate Urine Bilirubin Urine Urobilinogen Ur Leukocyte Esterase Urine RBC Urine WBC Ur Squamous Epith Cells Ur Transition Epith Cell Ur Renal Epithelial Cell Urine Bacteria Ur Culture Indicated? Vol Urine Centrifuged Chlamy pneumoniae PCR Adenovirus (PCR) B. pertussis DNA (PCR) B.parapertussis DNA PCR Coronavirus OC43 (PCR) Coronavirus HKU1 (PCR) Coronavirus 229E (PCR) SARS-CoV-2 (PCR) Coronavirus NL63 (PCR) Human Metapneumovir PCR Influenza Type A (PCR) Influenza Type B (PCR) M. pneumoniae (PCR) Parainfluenza 1 (PCR) Parainfluenza 2 (PCR) Parainfluenza 3 (PCR) Parainfluenza 4 (PCR) RSV (PCR) Entero/Rhino (PCR) 04/06/25 04/06/25 12:41 16:45 WBC RBC Hgb Hct MCV MCH MCHC RDW Plt Count Neut % (Auto) Lymph % (Auto) Conway % (Auto) Eos % (Auto) Baso % (Auto) Neut # (Auto) Lymph # (Auto) Conway # (Auto) Eos # (Auto) Baso # (Auto) Sodium Potassium Chloride Carbon Dioxide BUN Creatinine Estimated GFR BUN/Creatinine Ratio Glucose POC Whole Bld Glucose 160 H 196 H Hemoglobin A1c Calcium Total Bilirubin AST ALT Alkaline Phosphatase Total Protein Albumin Globulin Albumin/Globulin Ratio Urine Color Urine Appearance Urine pH Ur Specific Dora Urine Protein Urine Glucose (UA) Urine Ketones Urine Occult Blood Urine Nitrate Urine Bilirubin Urine Urobilinogen Ur Leukocyte Esterase Urine RBC Urine WBC Ur Squamous Epith Cells Ur Transition Epith Cell Ur Renal Epithelial Cell Urine Bacteria Ur Culture Indicated? Vol Urine Centrifuged Chlamy pneumoniae PCR Adenovirus (PCR) B. pertussis DNA (PCR) B.parapertussis DNA PCR Coronavirus OC43 (PCR) Coronavirus HKU1 (PCR) Coronavirus 229E (PCR) SARS-CoV-2 (PCR) Coronavirus NL63 (PCR) Human Metapneumovir PCR Influenza Type A (PCR) Influenza Type B (PCR) M. pneumoniae (PCR) Parainfluenza 1 (PCR) Parainfluenza 2 (PCR) Parainfluenza 3 (PCR) Parainfluenza 4 (PCR) RSV (PCR) Entero/Rhino (PCR) [facility] Medical History (Updated 04/05/25 @ 18:03 by Efren Li MD) Diabetic peripheral neuropathy CKD (chronic kidney disease) Normocytic anemia Diabetes mellitus HTN (hypertension) Social History household members: none Smoking Status: Former smoker Assessment & Plan Time-Based Coding :: [TOTAL MINUTES] spent with patient and on the chart (including review of chart, obtaining history, exam, reviewing outside data, placing orders, documenting exam and treatment plan, and counseling patient) on [DATE]. Quality VTE Deep Vein Thrombosis/Pulmonary Embolism Present on Admission: No
[2025-04-06] MEDS: VANCOMYCIN 1,250 MG/250 ML PIGGYBACK 250 MG IV (18:00)
[2025-04-06] MEDS: GABAPENTIN 100 MG CAPSULE PO (20:52)
[2025-04-06 22:00] VITALS: BP 131/61; PULSE 78; RESP 16; TEMP 35.7; O2SAT 98
[2025-04-07] VITALS (7 sets, daily range): BP systolic 125–177; BP diastolic 74–94; PULSE 85–96; RESP 15–20; TEMP 35.8–37.6; O2SAT 93–98
[2025-04-07] MEDS: SODIUM CHLORIDE 0.9% 1,000 ML 100 ML IV ×2 (03:05→20:32)
[2025-04-07] MEDS: PIPERACILLIN/TAZO 3.375 GM in SODIUM CHLORIDE 0.9% 100 ML IV ×2 (04:27→13:44)
[2025-04-07] MEDS: HEPARIN 5,000 UNIT/ML VIAL 5000 UNIT SUBCUT ×3 (04:27→20:20)
[2025-04-07] MEDS: LEVOTHYROXINE 100 MCG TABLET PO (06:07)
[2025-04-07] MEDS: LEVOTHYROXINE 75 MCG TABLET PO (06:07)
[2025-04-07] MEDS: FUROSEMIDE 20 MG TABLET 40 MG PO (08:23)
[2025-04-07] MEDS: GABAPENTIN 100 MG CAPSULE PO ×3 (08:24→20:21)
[2025-04-07] MEDS: ASPIRIN EC 81 MG TABLET PO (08:24)
[2025-04-07] MEDS: DOCUSATE 100 MG CAPSULE PO ×2 (08:24→20:21)
[2025-04-07 09:18] LABS: Add Manual Diff / Slide Review NO; Hematocrit 25.5 % (36-46); Hemoglobin 8.5 g/dL (12.0-16.0); Lymphocytes Absolute Auto 1200 /uL (1100-4500); Mean Corpuscular HGB Conc 33.5 % (30-36); Mean Corpuscular Hemoglobin 28.3 PG (26-34); Mean Corpuscular Volume 84.5 fL (80-100); Platelet Count 184 X10^3/uL (150-400)
[2025-04-07 09:32] LABS: Alanine Aminotransferase 49 IU/L (<35); Albumin 3.5 g/dL (3.5-5.0); Albumin Globulin Ratio 1.0 (1.0-2.8); Alkaline Phosphatase 200 U/L (38-126); Blood Urea Nitrogen 45 mg/dL (7-17); Calcium 8.6 mg/dL (8.4-10.2); Carbon Dioxide 22 mmol/L (22-32); Chloride 108 mmol/L (98-107); Estimated Glomerular Filt Rate 28 mL/min (>60); Globulin 3.6 g/dL (1.7-4.1); Glucose 97 mg/dL (70-99); HEMOLYSIS < 15 (0-50); Potassium 4.4 mmol/L (3.4-5.1); Sodium 139 mmol/L (137-145); Total Protein 7.1 g/dL (6.3-8.2)
--- NOTE | 2025-04-07 09:59 | PC.NURSE ---
This RN was asked by coordinator to attempt to place IV line due to patient previous IV being pulled on accident per patient. This RN successfully placed 22g IV on underside of left wrist and informed primary nurse and charted the IV placement.
[2025-04-07] MEDS: INSULIN LISPRO 100 UNIT/ML 3ML VIAL SUBCUT ×2 (12:24→16:51)
[2025-04-07] MEDS: CEFDINIR 300 MG CAPSULE PO (20:21)
[2025-04-07] MEDS: TRIMETH/SULFA 160/800 (DS) TABLET 2 TAB PO (20:21)
[2025-04-08 03:00] VITALS: BP 150/68; PULSE 92; RESP 18; TEMP 37.9; O2SAT 92
[2025-04-08 03:45] VITALS: TEMP 37.4
[2025-04-08] MEDS: HEPARIN 5,000 UNIT/ML VIAL 5000 UNIT SUBCUT (05:42)
[2025-04-08] MEDS: LEVOTHYROXINE 75 MCG TABLET PO (05:42)
[2025-04-08] MEDS: LEVOTHYROXINE 100 MCG TABLET PO (05:42)
[2025-04-08 05:45] VITALS: TEMP 37.4
[2025-04-08] MEDS: ACETAMINOPHEN 325 MG TABLET 975 MG PO (05:45)
--- NOTE | 2025-04-08 06:41 | PC.RNWOUND ---
wound on Right back of shoulder
--- NOTE | 2025-04-08 06:43 | PC.RNWOUND ---
back of Right shoulder
[2025-04-08 08:00] VITALS: BP 153/78; PULSE 81; RESP 18; TEMP 36.6; O2SAT 97
[2025-04-08] MEDS: FUROSEMIDE 20 MG TABLET 40 MG PO (09:14)
[2025-04-08] MEDS: DOCUSATE 100 MG CAPSULE PO (09:14)
[2025-04-08] MEDS: GABAPENTIN 100 MG CAPSULE PO (09:15)
[2025-04-08] MEDS: ASPIRIN EC 81 MG TABLET PO (09:15)
[2025-04-08] MEDS: CEFDINIR 300 MG CAPSULE PO (09:15)
[2025-04-08] MEDS: TRIMETH/SULFA 160/800 (DS) TABLET 2 TAB PO (09:21)
--- NOTE | 2025-04-08 09:35 | P.DS_ITS ---
History of Present Illness History of Present Illness Date Patient Seen: 04/08/25 Chief complaint: Weakness, n/v Narrative: Chief complaint: Confusion nausea and vomiting and right toe ulcer History of present illness: 04/05: This is a 54 year old female with a history of HTN, peripheral neuropathy and DM who presents with 2 days of nausea/vomiting, a new fever, a right large toe ulcer with related cellulitis and acute worsened mental status. She is oriented to name and place but per her assisted living facility staff is normally fully oriented. She is unable to answer questions with any pertinent facts. She says she does not have a PCP, that she takes no medicines but also says that she has had diabetes. [employer] reports that they were called for 2 days of nausea and vomiting and when they arrived she had a fever of 101, heart rate of 114 and a blood pressure of 181/78 with a respiratory rate of 30. She is receiving a sepsis protocol for her cellulitis. CT scan rules out osteomyelitis at the right large toe ulcer. The white blood count is 16.9 with a hemoglobin of 9.6. The GFR is 29, down from a baseline of 46 earlier this year. The BNP is 1500 and the chest x-ray is consistent with pulmonary edema. The UA has 10-30 wbc's with negative nitrite and negative leukocyte esterase. Findings of cellulitis and infected diabetic ulcer of right lower leg Hospital course: 04/06: Significant improvement in mentation no longer in pain no longer vomiting appetite is coming back cellulitis is improving 04/07: Cultures for urine and previous wound ulcer as below: Urine culture 04/07 1. Klebsiella pneumoniae M.I.C. RX --------- --- * Amoxicillin/Clavulanate 4 S * Ampicillin R * Ceftriaxone <=0.25 S * Ciprofloxacin <=0.06 S * Ertapenem <=0.12 S * Gentamicin <=1 S * Levofloxacin <=0.12 S * Meropenem <=0.25 S * Nitrofurantoin 64 I * Tetracycline <=1 S * Trimethoprim/Sulfamethoxazole <=20 S * Piperacillin/Tazobactam <=4 S Wound culture 03/22: 1. Methicillin Resis Staph Aureus M.I.C. RX --------- --- * Daptomycin 0.25 S * Vancomycin 1 S * Ciprofloxacin >=8 R * Doxycycline <=0.5 S * Erythromycin >=8 R * Gentamicin <=0.5 S * Levofloxacin 4 R * Linezolid 2 S * Moxifloxacin 1 I * Oxacillin Segun >=4 R * Rifampin <=0.5 S * Tetracycline <=1 S * Trimethoprim/Sulfamethoxazole <=10 S 2. Proteus mirabilis M.I.C. RX --------- --- * Amoxicillin/Clavulanate <=2 S * Ampicillin <=2 S * Ampicillin/Sulbactam <=2 S * Aztreonam <=1 S * Cefazolin 4 I * Ceftazidime <=0.5 S * Ceftriaxone <=0.25 S * Cefuroxime 2 S * Ciprofloxacin >=4 R * Ertapenem <=0.12 S * Gentamicin <=1 S * Meropenem <=0.25 S * Tetracycline >=16 R * Trimethoprim/Sulfamethoxazole <=20 S * Piperacillin/Tazobactam <=4 S Interpretation Summary This is a somewhat technically difficult study. Normal sinus rhythm with wide QRS complexes. Normal LV size and moderately increased wall thickness. Normal wall motion and LV systolic function. Ejection fraction is 60-65%. Normal chamber sizes. No significant valvular abnormalities. Compared to prior echocardiogram performed at [facility] in [facility], no changes have occurred. Assessment and plan: Right lower extremity diabetic ulcer/cellulitis/sepsis, present on admission. Active. * -IVvancomycin and Zosyn. IV fluid. Change to Bactrim and cefdinir in preparation for discharge * -03/18 wound culture reported as Proteus and MRSA. Sensitive to Bactrim * -lactic acid 0.9 with white blood count 16 0.9 * -correctional insulin scale for optimization of blood sugars for healing. * -CT scan rules out osteomyelitis of the small ulcer of the right large toe. * -blood cultures are negative we will follow wound cultures * Patient ready for discharge back to [facility] Diabetes mellitus type 2, present on admission. Chronic. * -blood sugars are in the mid to high 100s. * -Check A1c, follow up blood sugars a.c. HS, carb choice diet and medium dose correctional lispro scale. Congestive heart failure, present on admission. Active. * -no known history of prior congestive heart failure. * -elevated BNP of 1500 along with chest x-ray evidence of pulmonary edema. * -check echocardiogram * -once the sepsis protocol and recovery is confirmed then she will likely need diuresis. Hypertension, present on admission. Active. * -assess blood pressure over the next 24 hours and add medication treatment as indicated. Cognitive dysfunction/altered mental status, present on admission. Active. * -her facility reports that she is normally fully oriented and conversant. * -on admission she is unable to accurately discuss or answer questions. * -consider head CT if this does not improve with treatment of the cellulitis/sepsis CKD 3 with SASHA * -admitting GFR 29, down from a baseline of 46. * -hydrate with IV fluid and follow. DVT prophylaxis * With renal dosing enoxaparin. Code status: * Full code blue Disposition: * Discharge back to [facility] on 10 days of oral antibiotics cefdinir and Bactrim 38 minutes involved in managing this patient including direct [id number] evaluation of the patient review of images records and objective laboratory findings Discharge Providers Provider Date of admission: 04/05/25 17:18 Discharge Date: 04/08/25 Primary care physician: Francesco Salomon MD Discharge provider: Kris Goodson MD Exam Vital Signs (past 8 hours): - 04/08/25 03:00 04/08/25 03:45 04/08/25 05:45 Temperature 100.2 F H 99.4 F 99.4 F Pulse Rate 92 H Respiratory Rate 18 Blood Pressure 150/68 H Pulse Oximetry 92 Oxygen Flow Rate 0 04/08/25 08:00 Temperature 97.9 F Pulse Rate 81 Respiratory Rate 18 Blood Pressure 153/78 H Pulse Oximetry 97 Oxygen Flow Rate 0 Oxygen Delivery Method Room Air Oxygen Flow Rate 0 Objective Labs 04/07/25 08:55 04/07/25 08:55 Labs: Laboratory Results - last 24 hr 04/07/25 04/07/25 04/07/25 08:55 11:49 16:34 Sodium 139 Potassium 4.4 Chloride 108 H Carbon Dioxide 22 BUN 45 H Creatinine 2.03 H Estimated GFR 28 L BUN/Creatinine Ratio 22.2 H Glucose 97 POC Whole Bld Glucose 159 H 152 H Calcium 8.6 Total Bilirubin 0.5 AST 69 H ALT 49 H Alkaline Phosphatase 200 H Total Protein 7.1 Albumin 3.5 Globulin 3.6 Albumin/Globulin Ratio 1.0 04/07/25 04/08/25 20:17 07:45 Sodium Potassium Chloride Carbon Dioxide BUN Creatinine Estimated GFR BUN/Creatinine Ratio Glucose POC Whole Bld Glucose 153 H 106 H Calcium Total Bilirubin AST ALT Alkaline Phosphatase Total Protein Albumin Globulin Albumin/Globulin Ratio [facility] Medical History (Updated 04/05/25 @ 18:03 by Efren Li MD) Diabetic peripheral neuropathy CKD (chronic kidney disease) Normocytic anemia Diabetes mellitus HTN (hypertension) Social History household members: none Smoking Status: Former smoker Discharge Plan Discharge Plan Patient Disposition: Assisted Living Discharge orders & Medications Discharge Orders: Discharge (Order); Ordered 04/08/25 Ordered By: Kris Goodson Prescriptions: New sulfamethoxazole-trimethoprim 800-160 mg Tablet 2 tab PO BID Qty: 20 0RF cefdinir 300 mg Capsule 300 mg PO BID Qty: 20 0RF Continued aspirin 81 mg tablet,delayed release (DR/EC) 81 mg PO DAILY gabapentin 100 mg capsule 100 mg PO TID furosemide 20 mg tablet 40 mg PO DAILY Jardiance 10 mg tablet 10 mg PO DAILY levothyroxine 175 mcg tablet 175 mcg PO DAILY (DME) aleve See Rx Instructions .Route .MEDSUPPLY Rx Instructions: 440mg po q8hr prn pain acetaminophen 325 mg tablet 650 mg PO Q4H PRN (Reason: fever or pain) hydrocortisone 1 % cream 1 applic topical DAILY PRN (Reason: skin irritation) Patient Comments: scalp and upper back prn loperamide 2 mg capsule 4 mg PO Q8H PRN (Reason: loose stool) glucose oral tabs See Rx Instructions .ROUTE .COMPLEX Rx Instructions: 4 mg tab prn if blood sugar <70 repeat q15min prn; Follow up/Referrals: Francesco Salomon MD [Primary Care Provider, Internal Medicine] Visit Report/Discharge Packet Stand Alone Forms: Patient Portal/API, Stroke Signs & Symptoms Discharge Data Primary Care Provider: Francesco Salomon Quality VTE Deep Vein Thrombosis/Pulmonary Embolism Present on Admission: No
--- NOTE | 2025-04-08 09:40 | P.PN_ITS ---
Subjective Subjective Date Patient Seen: 04/07/25 Interval history: Chief complaint: Confusion nausea and vomiting and right toe ulcer History of present illness: 04/05: This is a 54 year old female with a history of HTN, peripheral neuropathy and DM who presents with 2 days of nausea/vomiting, a new fever, a right large toe ulcer with related cellulitis and acute worsened mental status. She is oriented to name and place but per her assisted living facility staff is normally fully oriented. She is unable to answer questions with any pertinent facts. She says she does not have a PCP, that she takes no medicines but also says that she has had diabetes. [employer]ist reports that they were called for 2 days of nausea and vomiting and when they arrived she had a fever of 101, heart rate of 114 and a blood pressure of 181/78 with a respiratory rate of 30. She is receiving a sepsis protocol for her cellulitis. CT scan rules out osteomyelitis at the right large toe ulcer. The white blood count is 16.9 with a hemoglobin of 9.6. The GFR is 29, down from a baseline of 46 earlier this year. The BNP is 1500 and the chest x-ray is consistent with pulmonary edema. The UA has 10-30 wbc's with negative nitrite and negative leukocyte esterase. Findings of cellulitis and infected diabetic ulcer of right lower leg Hospital course: 04/06: Significant improvement in mentation no longer in pain no longer vomiting appetite is coming back cellulitis is improving 04/07: Cultures for urine and previous wound ulcer as below: Urine culture 04/07 1. Klebsiella pneumoniae M.I.C. RX --------- --- * Amoxicillin/Clavulanate 4 S * Ampicillin R * Ceftriaxone <=0.25 S * Ciprofloxacin <=0.06 S * Ertapenem <=0.12 S * Gentamicin <=1 S * Levofloxacin <=0.12 S * Meropenem <=0.25 S * Nitrofurantoin 64 I * Tetracycline <=1 S * Trimethoprim/Sulfamethoxazole <=20 S * Piperacillin/Tazobactam <=4 S Wound culture 03/22: 1. Methicillin Resis Staph Aureus M.I.C. RX --------- --- * Daptomycin 0.25 S * Vancomycin 1 S * Ciprofloxacin >=8 R * Doxycycline <=0.5 S * Erythromycin >=8 R * Gentamicin <=0.5 S * Levofloxacin 4 R * Linezolid 2 S * Moxifloxacin 1 I * Oxacillin Segun >=4 R * Rifampin <=0.5 S * Tetracycline <=1 S * Trimethoprim/Sulfamethoxazole <=10 S 2. Proteus mirabilis M.I.C. RX --------- --- * Amoxicillin/Clavulanate <=2 S * Ampicillin <=2 S * Ampicillin/Sulbactam <=2 S * Aztreonam <=1 S * Cefazolin 4 I * Ceftazidime <=0.5 S * Ceftriaxone <=0.25 S * Cefuroxime 2 S * Ciprofloxacin >=4 R * Ertapenem <=0.12 S * Gentamicin <=1 S * Meropenem <=0.25 S * Tetracycline >=16 R * Trimethoprim/Sulfamethoxazole <=20 S * Piperacillin/Tazobactam <=4 S Interpretation Summary This is a somewhat technically difficult study. Normal sinus rhythm with wide QRS complexes. Normal LV size and moderately increased wall thickness. Normal wall motion and LV systolic function. Ejection fraction is 60-65%. Normal chamber sizes. No significant valvular abnormalities. Compared to prior echocardiogram performed at [facility] in [facility], no changes have occurred. Assessment and plan: Right lower extremity diabetic ulcer/cellulitis/sepsis, present on admission. Active. * -IVvancomycin and Zosyn. IV fluid. Change to Bactrim and cefdinir in preparation for discharge * -03/18 wound culture reported as Proteus and MRSA. Sensitive to Bactrim * -lactic acid 0.9 with white blood count 16 0.9 * -correctional insulin scale for optimization of blood sugars for healing. * -CT scan rules out osteomyelitis of the small ulcer of the right large toe. * -blood cultures are negative we will follow wound cultures * Patient ready for discharge back to [facility] Diabetes mellitus type 2, present on admission. Chronic. * -blood sugars are in the mid to high 100s. * -Check A1c, follow up blood sugars a.c. HS, carb choice diet and medium dose correctional lispro scale. Congestive heart failure, present on admission. Active. * -no known history of prior congestive heart failure. * -elevated BNP of 1500 along with chest x-ray evidence of pulmonary edema. * -check echocardiogram * -once the sepsis protocol and recovery is confirmed then she will likely need diuresis. Hypertension, present on admission. Active. * -assess blood pressure over the next 24 hours and add medication treatment as indicated. Cognitive dysfunction/altered mental status, present on admission. Active. * -her facility reports that she is normally fully oriented and conversant. * -on admission she is unable to accurately discuss or answer questions. * -consider head CT if this does not improve with treatment of the cellulitis/sepsis CKD 3 with SASHA * -admitting GFR 29, down from a baseline of 46. * -hydrate with IV fluid and follow. DVT prophylaxis * With renal dosing enoxaparin. Code status: * Full code blue Disposition: * Discharge back to [facility] tomorrow 04/08 on 10 days of oral antibiotics cefdinir and Bactrim 38 minutes involved in managing this patient including direct [id number] evaluation of the patient review of images records and objective laboratory findings Exam Vital Signs (past 8 hours): - 04/08/25 03:00 04/08/25 03:45 04/08/25 05:45 Temperature 100.2 F H 99.4 F 99.4 F Pulse Rate 92 H Respiratory Rate 18 Blood Pressure 150/68 H Pulse Oximetry 92 Oxygen Flow Rate 0 04/08/25 08:00 Temperature 97.9 F Pulse Rate 81 Respiratory Rate 18 Blood Pressure 153/78 H Pulse Oximetry 97 Oxygen Flow Rate 0 Oxygen Delivery Method Room Air Oxygen Flow Rate 0 Objective Labs 04/07/25 08:55 04/07/25 08:55 Labs: Laboratory Results - last 24 hr 04/07/25 04/07/25 04/07/25 11:49 16:34 20:17 POC Whole Bld Glucose 159 H 152 H 153 H 04/08/25 07:45 POC Whole Bld Glucose 106 H [facility] Medical History (Updated 04/05/25 @ 18:03 by Efren Li MD) Diabetic peripheral neuropathy CKD (chronic kidney disease) Normocytic anemia Diabetes mellitus HTN (hypertension) Social History household members: none Smoking Status: Former smoker Assessment & Plan Time-Based Coding :: [TOTAL MINUTES] spent with patient and on the chart (including review of chart, obtaining history, exam, reviewing outside data, placing orders, documenting exam and treatment plan, and counseling patient) on [DATE]. Quality VTE Deep Vein Thrombosis/Pulmonary Embolism Present on Admission: No
--- NOTE | 2025-04-08 12:12 | CM.DPNOTE ---
DCP Note TRACK HOE OPERATOR reviewed EMR per provider, cleared to return to [facility] today. TRACK HOE OPERATOR faxed updated clinicals to [facility]. spoke with Shiela, can take pt back today. asked for RN report. transport at 12pm at main entrance. TRACK HOE OPERATOR updated RN/HAT STEAMER. kindly agreed to update pt and assist her down to main entrance at 12pm. TRACK HOE OPERATOR gave RN report number. TRACK HOE OPERATOR placed signed med list in chart/faxed to [facility]. P: dc today at 12pm via facility transport back to [facility]. CM team will continue to follow as needed EMILY Cooley
== END 2025-04-08 12:31 | DRG 872 ==
LOC: ED 16:08 → AC 17:19
PROVIDERS: Internal Medicine; Admitting Provider Family Medicine; Emergency Provider Student in an Organized Health Care Education/Training Program; Family Provider Hospitalist; PCP Hospitalist; Visit Provider Family Medicine
DX: A41.9 Sepsis, unspecified organism (principal); L03.115 Cellulitis of right lower limb; N17.9 Acute kidney failure, unspecified; I13.0 Hypertensive heart and chronic kidney disease with heart failure and stage 1 through stage 4 chronic kidney disease, or unspecified chronic kidney disease; E11.628 Type 2 diabetes mellitus with other skin complications; N18.30 Chronic kidney disease, stage 3 unspecified; E11.22 Type 2 diabetes mellitus with diabetic chronic kidney disease; E11.621 Type 2 diabetes mellitus with foot ulcer; L97.519 Non-pressure chronic ulcer of other part of right foot with unspecified severity; I50.9 Heart failure, unspecified; E11.40 Type 2 diabetes mellitus with diabetic neuropathy, unspecified; F09 Unspecified mental disorder due to known physiological condition; B95.62 Methicillin resistant Staphylococcus aureus infection as the cause of diseases classified elsewhere; B96.4 Proteus (mirabilis) (morganii) as the cause of diseases classified elsewhere; Z79.84 Long term (current) use of oral hypoglycemic drugs; Z87.891 Personal history of nicotine dependence; L97.512 Non-pressure chronic ulcer of other part of right foot with fat layer exposed; L84 Corns and callosities; E11.42 Type 2 diabetes mellitus with diabetic polyneuropathy; R60.0 Localized edema; Z91.198 Patient's noncompliance with other medical treatment and regimen for other reason
CPT/HCPCS: 11042; 36415; 51701; 71046; 73700; 80053; 81001; 82009; 82550; 82962; 83036; 83605; 83880; 84145; 84484; 85025; 87040; 87077; 87086; 87186; 87633; 93005; 93010; 96365; 96368; 99284; 99291; C8929; J1644; J1815; J2543; J3375; Q9957

== ENCOUNTER → 2025-04-16 09:38 | Outpatient (CLI) | payer OTHER, MEDICAID, SELFPAY ==
[2025-04-05 18:22] VITALS: BMI 47.2
== END ==
LOC: WC 09:48
PROVIDERS: Family Provider Hospitalist; PCP Hospitalist; Referring Provider Hospitalist; Visit Provider Surgery
DX: E11.621 Type 2 diabetes mellitus with foot ulcer (principal); L97.512 Non-pressure chronic ulcer of other part of right foot with fat layer exposed; L84 Corns and callosities; E11.40 Type 2 diabetes mellitus with diabetic neuropathy, unspecified; I50.9 Heart failure, unspecified; E11.22 Type 2 diabetes mellitus with diabetic chronic kidney disease; N18.31 Chronic kidney disease, stage 3a; R56.9 Unspecified convulsions
CPT/HCPCS: 11042; 99213

== ENCOUNTER → 2025-04-17 09:23 | Outpatient (ROUT) | payer OTHER, MEDICAID, SELFPAY ==
[2025-04-05 18:22] VITALS: BMI 47.2
[2025-04-18 08:56] LABS: Hematocrit 27.9 % (36-46); Hemoglobin 9.3 g/dL (12.0-16.0); Mean Corpuscular HGB Conc 33.3 % (30-36); Mean Corpuscular Hemoglobin 28.3 PG (26-34); Mean Corpuscular Volume 84.9 fL (80-100); Platelet Count 319 X10^3/uL (150-400)
[2025-04-18 09:25] LABS: Blood Urea Nitrogen 50 mg/dL (7-17); Calcium 8.6 mg/dL (8.4-10.2); Carbon Dioxide 23 mmol/L (22-32); Chloride 100 mmol/L (98-107); Estimated Glomerular Filt Rate 20 mL/min (>60); Glucose 133 mg/dL (70-99); HEMOLYSIS < 15 (0-50); Magnesium 2.6 mg/dL (1.6-2.3); Potassium 5.1 mmol/L (3.4-5.1); Sodium 134 mmol/L (137-145)
[2025-04-18 09:36] LABS: Hemoglobin A1C% w Est Avg Glu 8.1 % (4.0-6.0)
[2025-04-18 09:56] LABS: Thyroid Stimulating Hormone 4.30 uIU/mL (0.47-4.68)
== END ==
PROVIDERS: Family Provider Hospitalist; PCP Hospitalist; Visit Provider Registered Nurse
DX: E11.9 Type 2 diabetes mellitus without complications (principal); E03.9 Hypothyroidism, unspecified; I50.9 Heart failure, unspecified; R60.9 Edema, unspecified; N18.31 Chronic kidney disease, stage 3a
CPT/HCPCS: 36415; 80048; 83036; 83735; 84443; 85027

== ENCOUNTER → 2025-04-23 10:31 | Outpatient (CLI) | payer OTHER, MEDICAID, SELFPAY ==
[2025-04-05 18:22] VITALS: BMI 47.2
== END ==
LOC: WC 10:32
PROVIDERS: Family Provider Hospitalist; PCP Hospitalist; Referring Provider Registered Nurse; Visit Provider Surgery
DX: L97.512 Non-pressure chronic ulcer of other part of right foot with fat layer exposed (principal); E11.621 Type 2 diabetes mellitus with foot ulcer; L84 Corns and callosities; L53.9 Erythematous condition, unspecified; R60.0 Localized edema; Z91.199 Patient's noncompliance with other medical treatment and regimen due to unspecified reason
CPT/HCPCS: 11042

== ENCOUNTER → 2025-05-15 07:29 | Outpatient (ROUT) | payer OTHER, MEDICAID, SELFPAY ==
[2025-04-05 18:22] VITALS: BMI 47.2
[2025-05-15 07:46] LABS: Blood Urea Nitrogen 71 mg/dL (7-17); Calcium 8.3 mg/dL (8.4-10.2); Carbon Dioxide 24 mmol/L (22-32); Chloride 102 mmol/L (98-107); Estimated Glomerular Filt Rate 36 mL/min (>60); Glucose 303 mg/dL (70-99); HEMOLYSIS < 15 (0-50); Potassium 3.8 mmol/L (3.4-5.1); Sodium 135 mmol/L (137-145)
== END ==
LOC: LAB 07:34
PROVIDERS: Family Provider Hospitalist; PCP Hospitalist; Visit Provider Hospitalist
DX: I50.9 Heart failure, unspecified (principal); N18.9 Chronic kidney disease, unspecified
CPT/HCPCS: 36415; 80048

== ENCOUNTER → 2025-05-24 14:59 | Outpatient (CLI) | payer OTHER, MEDICAID, SELFPAY ==
[2025-04-05 18:22] VITALS: BMI 47.2
== END ==
LOC: WC 15:02
PROVIDERS: Family Provider Hospitalist; PCP Hospitalist; Referring Provider Hospitalist; Visit Provider Physician Assistant
DX: E11.621 Type 2 diabetes mellitus with foot ulcer (principal); L97.512 Non-pressure chronic ulcer of other part of right foot with fat layer exposed; E11.42 Type 2 diabetes mellitus with diabetic polyneuropathy; L53.8 Other specified erythematous conditions; L84 Corns and callosities
CPT/HCPCS: 11042; 87070; 87077; 87186; 87205; 99214

== ENCOUNTER 2025-06-03 02:19 | Inpatient (IN) | payer OTHER, MEDICAID, SELFPAY ==
[2025-04-05 18:22] VITALS: BMI 47.2
[2025-06-03] VITALS (21 sets, daily range): BP systolic 110–180; BP diastolic 51–91; PULSE 83–94; RESP 16–31; TEMP 36.8–38.4; O2SAT 90–99; BMI 40.8
--- NOTE | 2025-06-03 02:37 | ED.GENADULT ---
HPI - General Adult General Chief complaint: Fever Stated complaint: fever Time Seen by Provider: 06/03/25 02:27 History of Present Illness HPI narrative: 54-year-old female resident at [facility], noted by staff to have fever today. Right leg redness noted. Denies cough or shortness of breath. Denies painful or frequent urination. Denies flank pain or back pain. Denies headache neck pain facial pain, denies photophobia. Denies nausea or vomiting diarrhea, denies abdominal discomfort. Related Data Home Medications ?Medication ?Instructions ?Recorded ?Confirmed acetaminophen 325 mg tablet 650 mg PO Q4H PRN fever or pain 04/05/25 06/03/25 aleve 04/05/25 04/05/25 aspirin 81 mg tablet,delayed 81 mg PO DAILY 04/05/25 06/03/25 release empagliflozin 10 mg tablet 10 mg PO DAILY 04/05/25 06/03/25 (Jardiance) gabapentin 100 mg capsule 100 mg PO TID 04/05/25 06/03/25 glucose oral tabs See Rx Instructions .Route .COMPLEX 04/05/25 06/03/25 hydrocortisone 1 % topical cream 1 applic topical DAILY PRN skin 04/05/25 04/05/25 irritation levothyroxine 175 mcg tablet 175 mcg PO DAILY 04/05/25 06/03/25 loperamide 2 mg capsule 4 mg PO Q8H PRN loose stool 04/05/25 06/03/25 Allergies Allergy/AdvReac Type Severity Reaction Status Date / Time No Known Drug Allergies Allergy Verified 06/03/25 02:42 Patient History Medical History Diabetic peripheral neuropathy CKD (chronic kidney disease) Normocytic anemia Diabetes mellitus HTN (hypertension) Social History household members: none Smoking Status: Never smoker Exam Narrative Exam Narrative: GENERAL: Well-developed patient, in mild distress. HEAD: Atraumatic. Normocephalic. EYES: Pupils equal round and reactive. Extraocular motions intact. No scleral icterus. No injection or drainage. ENT: Nose without bleeding, purulent drainage. Throat without erythema, tonsillar hypertrophy or exudate. Airway patent. NECK: Trachea midline. Non tender CARDIOVASCULAR: Regular rate and rhythm without murmurs, gallops, or rubs. RESPIRATORY: Clear to auscultation. Breath sounds equal bilaterally. No wheezes, rales, or rhonchi. GASTROINTESTINAL: Abdomen soft, non-tender, nondistended. EXTREMITIES: No edema or joint tenderness. BACK: Nontender without deformity or crepitance. No flank tenderness. NEURO: AOx3. Motor functions grossly nonfocal. SKIN: No rash or erythema of visible areas Initial Vital Signs Initial Vital Signs: Vital Signs Pulse Rate 94 H 06/03/25 02:37 Blood Pressure 140/82 06/03/25 02:37 Pulse Oximetry 93 06/03/25 02:37 Course Orders Ordered: Acetaminophen (Acetaminophen 325 Mg Tablet) 650 mg PO Q6H PRN PRN Reason: Fever/Mild Pain (1-3) Heparin Sodium (Porcine) (Heparin 5,000 Unit/Ml Vial) 5,000 unit SUBCUT BID [facility] Last Admin: 06/03/25 23:42 Dose: 5,000 unit Documented By: Admin: 06/03/25 12:31 Dose: 5,000 unit Documented By: SANGEETA Sodium Chloride (Normal Saline 0.9%) 1,000 mls @ 100 mls/hr IV CONT WANDA Last Admin: 06/03/25 23:42 Dose: 100 mls/hr Documented By: Infusion: 06/03/25 22:31 Dose: Infused Documented By: Admin: 06/03/25 12:31 Dose: 100 mls/hr Documented By: SANGEETA Ceftriaxone Sodium 2,000 mg/ (Sodium Chloride) 100 mls @ 200 mls/hr IV Q24H [facility] Vancomycin HCl (Vancomycin) 1,000 mg in 200 mls @ 200 mls/hr IV Q48H [facility] Naloxone HCl (Naloxone 0.4 Mg/Ml Vial) 0.2 mg IV Q2MIN PRN PRN Reason: Opiate Reversal Naloxone HCl (Naloxone 0.4 Mg/Ml Vial) 0.2 mg IV Q2MIN PRN PRN Reason: Opiate Reversal Ondansetron HCl (Ondansetron 4 Mg/2 Ml Inj) 4 mg IV Q8HR PRN PRN Reason: Nausea And Vomiting Oxycodone HCl (Oxycodone Ir 5 Mg Tablet) 5 mg PO Q4HR PRN PRN Reason: Pain, Moderate (4-6) Vancomycin HCl (Vancomycin Per Pharmacy) 1 request MISC NOW [facility] Discontinued Medications Ceftriaxone Sodium 1,000 mg/ (Sodium Chloride) 100 mls @ 200 mls/hr IV NOW ONE Stop: 06/03/25 03:00 Last Admin: 06/03/25 03:22 Dose: Not Given Documented By: CHIP Vancomycin HCl/Dextrose (Vancomycin) 2,000 mg in 400 mls @ 200 mls/hr IV NOW ONE Stop: 06/03/25 05:19 Last Infusion: 06/03/25 12:18 Dose: Infused Documented By: Infusion: 06/03/25 07:00 Dose: 0 mls/hr Documented By: Admin: 06/03/25 05:00 Dose: 200 mls/hr Documented By: CHIP Ceftriaxone Sodium 1,000 mg/ (Sodium Chloride) 100 mls @ 200 mls/hr IV NOW ONE Stop: 06/03/25 03:21 Last Admin: 06/03/25 04:21 Dose: Not Given Documented By: CHIP Sodium Chloride (Normal Saline 0.9%) 1,000 mls @ 1,000 mls/hr IV BOLUS ONE Stop: 06/03/25 04:23 Last Infusion: 06/03/25 07:55 Dose: Infused Documented By: Admin: 06/03/25 04:15 Dose: 1,000 mls/hr Documented By: CIHP Ceftriaxone Sodium 1,000 mg/ (Sodium Chloride) 100 mls @ 200 mls/hr IV NOW ONE Stop: 06/03/25 04:15 Last Infusion: 06/03/25 04:55 Dose: Infused Documented By: Admin: 06/03/25 04:15 Dose: 200 mls/hr Documented By: CHIP Vital Signs Vital signs: Vital Signs - 8 hr 06/03/25 02:37 06/03/25 02:37 06/03/25 02:42 Temperature 101.2 F H Pulse Rate 94 H 89 Respiratory Rate 21 Blood Pressure 140/82 140/82 Pulse Oximetry 93 95 Oxygen Delivery Method Room Air 06/03/25 03:00 06/03/25 03:00 06/03/25 03:30 Temperature Pulse Rate 90 85 Respiratory Rate 20 29 H Blood Pressure 130/60 Pulse Oximetry 91 92 Oxygen Delivery Method Room Air Room Air 06/03/25 04:00 06/03/25 04:02 06/03/25 04:02 Temperature 99.4 F Pulse Rate 88 86 Respiratory Rate 19 19 Blood Pressure 145/69 H Pulse Oximetry 90 L 91 Oxygen Delivery Method Room Air Room Air 06/03/25 04:30 06/03/25 05:00 Temperature Pulse Rate 88 87 Respiratory Rate 23 18 Blood Pressure Pulse Oximetry 91 Oxygen Delivery Method Room Air Medical Decision Making Lab Data Lab results reviewed: Yes I reviewed the patient's lab results. Lab results narrative: White blood cell count 87542, hemoglobin 9.8, platelets adequate. Glucose 133. BUN 68 with creatinine 2.13 elevated, similarly elevated varied ranges GFR in the past. Serum CO2 25 normal, electrolytes normal. Alkaline phosphatase 178, transaminases and total bilirubin normal. Lipase normal. ESR 107 elevated. CRP 24.5 elevated. Procalcitonin 53 elevated. Lactate 1.0 normal. 06/03/25 02:10 06/03/25 02:10 Labs: Lab Results 06/03/25 Range/Units 02:10 WBC 24.4 H (4.5-11.0) X10^3/uL RBC 3.57 L (4.0-5.2) X10^6/uL Hgb 9.8 L (12.0-16.0) g/dL Hct 29.8 L (36-46) % MCV 83.5 (80-100) fL MCH 27.6 (26-34) PG MCHC 33.0 (30-36) % RDW 13.9 (11.6-14.8) % Plt Count 243 (150-400) X10^3/uL Neut % (Auto) 96.9 H (50-75) % Lymph % (Auto) 1.4 L (25-40) % [place] % (Auto) 1.6 L (3-14) % Eos % (Auto) 0.0 L (2-4) % Baso % (Auto) 0.1 (0-2) % Neut # (Auto) 28691 H (5118-0968) /uL Lymph # (Auto) 300 L (2462-3556) /uL [place] # (Auto) 400 (0-900) /uL Eos # (Auto) 0 (0-450) /uL Baso # (Auto) 0 (0-100) /uL ESR 107 H (0-20) MM/HR Sodium 142 (137-145) mmol/L Potassium 4.1 (3.4-5.1) mmol/L Chloride 105 (98-107) mmol/L Carbon Dioxide 25 (22-32) mmol/L BUN 68 H (7-17) mg/dL Creatinine 2.13 H (0.52-1.04) mg/dL Estimated GFR 27 L (>60) mL/min BUN/Creatinine Ratio 31.9 H (6-22) Glucose 133 H (70-99) mg/dL Lactate 1.0 (0.7-2.1) mmol/L Calcium 8.3 L (8.4-10.2) mg/dL Total Bilirubin 0.5 (0.2-1.3) mg/dL AST 36 (14-36) IU/L ALT 26 (<35) IU/L Alkaline Phosphatase 178 H (38-126) U/L C-Reactive Protein 24.5 H (<1.0) mg/dL Total Protein 7.5 (6.3-8.2) g/dL Albumin 3.7 (3.5-5.0) g/dL Globulin 3.8 (1.7-4.1) g/dL Albumin/Globulin Ratio 1.0 (1.0-2.8) Lipase 64 (23-300) U/L Procalcitonin 53.8 H (<0.5) ng/mL MDM Narrative Medical decision making narrative: 54-year-old female resident of [facility] had fever noted by staff, some redness to right lower extremity, fever on triage, no tachycardia, normotensive. Labs pending including lactate. Blood cultures requested. IV ceftriaxone, IV vancomycin. X-rays right tib-fib, ankle, foot. Chest x-ray, urinalysis, COVID swab. Chest x-ray. Impressions goal ago no acute cardiopulmonary disease demonstrated. ? See tele radiology report. Lab data: White blood cell count 50931, hemoglobin 9.8, platelets adequate. Glucose 133. BUN 68 with creatinine 2.13 elevated, similarly elevated varied ranges GFR in the past. Serum CO2 25 normal, electrolytes normal. Alkaline phosphatase 178, transaminases and total bilirubin normal. Lipase normal. ESR 107 elevated. CRP 24.5 elevated. Procalcitonin 53 elevated. Lactate 1.0 normal. X-ray right tib fib. Impressions: ?No acute osseous findings, diffuse soft tissue swelling. See tele radiology report X-ray right foot. Impressions: ?No acute fracture. Diffuse soft tissue swelling.? See tele radiology report UA has been requested, patient refused cath urine specimen, no specimen yet received, was given IV ceftriaxone prior which should cover UTI pathogens if present. Right lower extremity venous Doppler. Impressions: ?No deep vein thrombosis of the right common femoral and proximal segment of the femoral veins, remaining deep veins of the right lower extremity are not evaluated as patient requested to terminate the exam.? See radiology report. Consider admission for cellulitis, patient amenable, will contact hospitalist. 629, case discussed with hospitalist Dr. Ca who accepts patient for admission to observation 719, call from Radiology over-read concern for lateral malleolar nondisplaced fracture, however patient does not seem to have tenderness in that area on re-exam, will not immobilize ankle for now, patient agrees. Critical Care Time Critical Care Time Critical Care Time: Yes Total Critical Care Time: 35 Attestation: The high probability of a clinically significant, sudden or life threatening deterioration of the [musculoskeletal, integument, renal] system(s) required my full and direct attention, intervention and personal management. The aggregate critical care time was [35] minutes. This time is in addition to time spent performing reported procedures but includes the following: [x] Data Review and interpretation [x] Patient assessment and monitoring of vital signs [x] Documentation [x] Medication orders and management Discharge Plan Departure Patient Disposition: Admitted as Observation Clinical Impression: Cellulitis of right leg, Renal insufficiency Admit Date/Time: 06/03/25 06:29 Admit Provider: Cyril Ca
--- NOTE | 2025-06-03 02:38 | DI.RAD.S_ITS ---
PROCEDURE: XR CHEST 1V INDICATIONS: Fever TECHNIQUE: One view of the chest was acquired. COMPARISON: [facility], CR, XR CHEST 2V, 04/05/2025, 15:01. FINDINGS: Surgical changes and devices: None. Lungs and pleura: Lungs are clear. No pleural effusions or pneumothorax. Mediastinum: Mediastinal contours appear normal. Heart size is normal. Bones and chest wall: No suspicious bony lesions. Overlying soft tissues appear unremarkable. IMPRESSION: No evidence acute pulmonary process. Comment: Final report is concordant with preliminary interpretation provided by [facility]. Dictated by: Sandor Chua M.D. on 06/03/2025 at 7:12 Approved by: Sandor Chua M.D. on 06/03/2025 at 7:12
--- NOTE | 2025-06-03 02:51 | PC.NURSE ---
Pt covered in urine and stool upon arrival to ED. Pt thoroughly cleaned, placed in ED gown, and [place] in place.
[2025-06-03 02:55] LABS: Add Manual Diff / Slide Review NO; Hematocrit 29.8 % (36-46); Hemoglobin 9.8 g/dL (12.0-16.0); Lymphocytes Absolute Auto 300 /uL (1100-4500); Mean Corpuscular HGB Conc 33.0 % (30-36); Mean Corpuscular Hemoglobin 27.6 PG (26-34); Mean Corpuscular Volume 83.5 fL (80-100); Platelet Count 243 X10^3/uL (150-400)
[2025-06-03 03:05] LABS: Alanine Aminotransferase 26 IU/L (<35); Albumin 3.7 g/dL (3.5-5.0); Albumin Globulin Ratio 1.0 (1.0-2.8); Alkaline Phosphatase 178 U/L (38-126); Blood Urea Nitrogen 68 mg/dL (7-17); Calcium 8.3 mg/dL (8.4-10.2); Carbon Dioxide 25 mmol/L (22-32); Chloride 105 mmol/L (98-107); Estimated Glomerular Filt Rate 27 mL/min (>60); Globulin 3.8 g/dL (1.7-4.1); Glucose 133 mg/dL (70-99); HEMOLYSIS < 15 (0-50); Lactate (Lactic Acid) 1.0 mmol/L (0.7-2.1); Lipase 64 U/L (23-300); Potassium 4.1 mmol/L (3.4-5.1); Sodium 142 mmol/L (137-145); Total Protein 7.5 g/dL (6.3-8.2)
--- NOTE | 2025-06-03 03:17 | PC.NURSE ---
Dr. Paredes in to examine pt
--- NOTE | 2025-06-03 03:19 | DI.RAD.S_ITS ---
PROCEDURE: XR TIBIA FUBULA RT 2V INDICATIONS: redness, eval for osteo TECHNIQUE: 2 views of the tibia and fibula were acquired. COMPARISON: [facility], CR, XR FOOT RT MIN 3V, 06/03/2025, 3:49. FINDINGS: Bones: There is a lucency present is in the region of the lateral malleolus which may potentially represent overlapping bony structures or a nondisplaced fracture. No osteomyelitis identified. Soft tissues: No suspicious soft tissue calcifications or masses. No soft tissue gas. IMPRESSION: 1. No osteomyelitis. 2. Question possible distal fibular fracture. Comment: Preliminary interpretation provided by [facility]. The possibility of a nondisplaced lateral malleolar fracture was discussed with the ordering ER physician at the time of final dictation on 06/03/2025 at 0721 hours. Recommend correlation with physical examination. Dictated by: Sandor Chua M.D. on 06/03/2025 at 7:17 Approved by: Sandor Chua M.D. on 06/03/2025 at 7:23
[2025-06-03 03:21] LABS: Procalcitonin 53.8 ng/mL (<0.5)
--- NOTE | 2025-06-03 03:22 | DI.RAD.S_ITS ---
PROCEDURE: XR FOOT RT MIN 3V INDICATIONS: RLE redness TECHNIQUE: 3 views of the foot were acquired. COMPARISON: [facility], CR, XR TIBIA FIBULA RT 2V, 06/03/2025, 3:49. [facility], CT, CT LE RT WO CON, 04/05/2025, 16:03. [facility], CR, XR FOOT RT MIN 3V, 03/20/2025, 13:26. FINDINGS: Bones: No plain film evidence of osteomyelitis. Possible nondisplaced distal fibular fracture at the lateral malleolus. No suspicious bony lesions. Soft tissues: No tibiotalar joint effusion. Achilles tendon appears normal. No soft tissue gas. IMPRESSION: No plain film evidence of osteomyelitis. Question possible nondisplaced distal fibular fracture. Comment: Preliminary interpretation provided by [facility]. The possibility of a lateral malleolar fracture was discussed with the ordering ED physician at the time of final dictation on 06/03/2025 at 0721 hours. Recommend correlation with physical examination. Dictated by: Sandor Chua M.D. on 06/03/2025 at 7:23 Approved by: Sandor Chua M.D. on 06/03/2025 at 7:25
--- NOTE | 2025-06-03 03:34 | PC.NURSE ---
Lab phlebotomy at bedside drawing blood cultures at this time.
--- NOTE | 2025-06-03 04:00 | DI.US.S_ITS ---
PROCEDURE: US PERIPH VENOUS LOW EXTREM RT INDICATIONS: redness, eval for DVT TECHNIQUE: Real-time imaging, as well as color and pulse Doppler interrogation, were performed of the lower extremity deep veins from the inguinal ligament to the popliteal fossa, with documentation of the visualized calf veins. COMPARISON: None. FINDINGS: Limited examination performed of the level of the common femoral and upper thigh portion of the deep vein of the thigh. No DVT in the structures. Patient refused to continue the examination. IMPRESSION: Limited study performed secondary to patient refusal to complete the study. No DVT at the level of the common femoral and upper thigh portion of the deep vein of the thigh. Comment: Final report is concordant with preliminary interpretation provided by [facility]. Dictated by: Sandor Chua M.D. on 06/03/2025 at 7:25 Approved by: Sandor Chua M.D. on 06/03/2025 at 7:27
--- NOTE | 2025-06-03 04:12 | PC.NURSE ---
Imaging at bedside
[2025-06-03] MEDS: SODIUM CHLORIDE 0.9% 1,000 ML 1000 ML IV (04:15)
--- NOTE | 2025-06-03 04:23 | PC.NURSE ---
US at bedside
[2025-06-03] MEDS: VANCOMYCIN 2,000 MG/400 ML PIGGYBACK 200 MG IV (05:00)
--- NOTE | 2025-06-03 05:04 | PC.NURSE ---
Pt resting quietly with eyes closed, resps even and not labored. No distress noted at this time. Pt remains connected to cardiac, blood pressure, resp, and pulse ox monitors with alarms on and audible. VS stable at this time. Call light within reach.
--- NOTE | 2025-06-03 06:06 | PC.NURSE ---
No change in patient condition or status. Pt resting quietly with eyes closed, resps even and not labored. No distress noted at this time. Pt remains connected to cardiac, blood pressure, pulse ox, and resp monitors with alarms on and audible. VS stable. Call light within reach.
--- NOTE | 2025-06-03 06:51 | PC.NURSE ---
BANK VAULT CLERK note: Patient's pulse oximeter was off. When I went to check on patient. When I came in patient was leaning part way over the bed rail. I said Hey, your pulse ox is off. Patient said I shit myself. You said you'd come and never did. I asked excuse me? Patient reiterated that I shit myself and you never came back. I said You never told me you needed to poo, but let's clean you up. Patient then began to tell me You're not giving me water! You're not giving me anything to drink! That's inhumane! I said well I think you're NPO. Patient reiterated that's not human. I asked her to turn over so I can change her. I didn't shit myself. I need to shit. I told you that. I said No, you told me you pooped yourself. I'm here to help you clean it up. Patient then said I need to get up and shit. I told patient Okay, but I need you to start talking to me nicer and not curse at me. You're not being nice to me. I need to shit. I got her a bed torres. Patient refused I need to go to the toilet! Like a human. I told patient I would need help. You can't do it yourself? Why not? I told patient I needed extra help if she refused the bed torres. Told RAFAEL Villegas about the interaction.
--- NOTE | 2025-06-03 07:19 | P.HP_ITS ---
History of Present Illness History of Present Illness Date Patient Seen: 06/03/25 Chief complaint: fever Narrative: From ED doctor: 54-year-old female resident at [facility], noted by staff to have fever today. Right leg redness noted. Denies cough or shortness of breath. Denies painful or frequent urination. Denies flank pain or back pain. Denies headache neck pain facial pain, denies photophobia. Denies nausea or vomiting diarrhea, denies abdominal discomfort. S: Right leg redness and pain. History of MRSA. O: VSS NAD, alert and oriented, fluent speech, calm. Normocephalic skull, EOMI, anicteric sclera, symmetric pupils. Oropharynx unremarkable, no droop. Neck supple, midline trachea, no adenopathy. Lungs clear, normal rate and effort. Heart regular, no murmur gallop or rub. Abdomen is soft, non distended and non tender. Extremities are free of edema. Skin is free of rash or lesions. Accept the right leg is diffusely red and warm from the ankle to the knee. There was no fluctuance or open drainage. Joints are not swollen or deformed. Judgment appears to be normal. IMAGING: Vascular imaging: Limited study performed secondary to patient refusal to complete the study. No DVT at the level of the common femoral and upper thigh portion of the deep vein of the thigh. Comment: Final report is concordant with preliminary interpretation provided by [facility]. Foot X-ray: No plain film evidence of osteomyelitis. Question possible nondisplaced distal fibular fracture. Tib-Fib X-ray: 1. No osteomyelitis. 2. Question possible distal fibular fracture. CXR: No evidence acute pulmonary process. A/P: 1. Right leg cellulitis, Active. 2. CKD, Cr 2.13. 3. DM 2, stable 4. HTN, stable. PLAN: -IV antibiotics, screen nares for MRSA. -leg elevation -antipyretics -IV fluids -monitor renal function -glucose control with correctional lispro Anticipate 2 MN in the hospital for IV antibiotics to treat a significant leg infection. The patient has chronic immunosuppression with chronic kidney disease and diabetes which increases her risk of adverse outcomes of her leg infection. Full resuscitation [facility] Medical History Diabetic peripheral neuropathy CKD (chronic kidney disease) Normocytic anemia Diabetes mellitus HTN (hypertension) Social History household members: none Smoking Status: Never smoker Meds Home Medications and Allergies Home Medications ?Medication ?Instructions ?Recorded ?Confirmed ?Type acetaminophen 325 mg tablet 650 mg PO Q4H PRN fever or pain 04/05/25 06/03/25 History aleve 04/05/25 04/05/25 History aspirin 81 mg tablet,delayed 81 mg PO DAILY 04/05/25 1 08/03/24 History release empagliflozin 10 mg tablet 10 mg PO DAILY 04/05/25 History (Jardiance) gabapentin 100 mg capsule 100 mg PO TID 04/05/2506/03 History glucose oral tabs See Rx Instructions .Route . COMPLEX 04/05/25 06/03/25 History hydrocortisone 1 % topical cream 1 applic topical ROLF Y PRN skin 04/05/25 04/05/25 History irritation levothyroxine 175 mcg tablet 175 mcg PO DAILY 04/05/25 06/03/25 History loperamide 2 mg capsule 4 mg PO Q8H PRN loose stool 04/05/25 06/03/25 History Allergies Allergy/AdvReac Type Severity Reaction Status Date / Time No Known Drug Allergies Allergy Verified 06/03/25 02:42 Review of Systems Review of Systems Narrative: All else reviewed and otherwise unremarkable except as noted in the history and physical. Exam Vital Signs (past 8 hours): - 06/03/25 02:37 06/03/25 02:37 06/03/25 02:42 Temperature 101.2 F H Pulse Rate 94 H 89 Respiratory Rate 21 Blood Pressure 140/82 140/82 Pulse Oximetry 93 95 Oxygen Delivery Method Room Air 06/03/25 03:00 06/03/25 03:00 06/03/25 03:30 Temperature Pulse Rate 90 85 Respiratory Rate 20 29 H Blood Pressure 130/60 Pulse Oximetry 91 92 Oxygen Delivery Method Room Air Room Air 06/03/25 04:00 06/03/25 04:02 06/03/25 04:02 Temperature 99.4 F Pulse Rate 88 86 Respiratory Rate 19 19 Blood Pressure 145/69 H Pulse Oximetry 90 L 91 Oxygen Delivery Method Room Air Room Air 06/03/25 04:30 06/03/25 05:00 Temperature Pulse Rate 88 87 Respiratory Rate 23 18 Blood Pressure Pulse Oximetry 91 Oxygen Delivery Method Room Air Oxygen Delivery Method Room Air Objective Labs 06/03/25 02:10 06/03/25 02:10 Labs: Laboratory Results - last 24 hr 06/03/25 02:10 WBC 24.4 H RBC 3.57 L Hgb 9.8 L Hct 29.8 L MCV 83.5 MCH 27.6 MCHC 33.0 RDW 13.9 Plt Count 243 Neut % (Auto) 96.9 H Lymph % (Auto) 1.4 L [place] % (Auto) 1.6 L Eos % (Auto) 0.0 L Baso % (Auto) 0.1 Neut # (Auto) 96888 H Lymph # (Auto) 300 L [place] # (Auto) 400 Eos # (Auto) 0 Baso # (Auto) 0 ESR 107 H Sodium 142 Potassium 4.1 Chloride 105 Carbon Dioxide 25 BUN 68 H Creatinine 2.13 H Estimated GFR 27 L BUN/Creatinine Ratio 31.9 H Glucose 133 H Lactate 1.0 Calcium 8.3 L Total Bilirubin 0.5 AST 36 ALT 26 Alkaline Phosphatase 178 H C-Reactive Protein 24.5 H Total Protein 7.5 Albumin 3.7 Globulin 3.8 Albumin/Globulin Ratio 1.0 Lipase 64 Procalcitonin 53.8 H Assessment & Plan Time-Based Coding :: 35 min spent with patient and on the chart (including review of chart, obtaining history, exam, reviewing outside data, placing orders, documenting exam and treatment plan, and counseling patient) on 06/03. Quality MIPS - Admit I confirm the patient?s Advance Care Plan is present, Code status is documented, Surrogate decision maker is in patient?s record [If Yes, STOP here]: Yes MIPS - Meds 'Current medications' to include all prescriptions, [id number] products, herbals, cannabis/cannabidiol products, and vitamin/mineral/dietary (nutritional) supplements. I have utilized all available resources to obtain, update, or review the patient?s current medications. [If Yes, STOP here]: Yes
--- NOTE | 2025-06-03 08:31 | PC.NURSE ---
Upon arrival this RN was given report that patient was requesting to leave and patient had pulled their IV out. This RN enters room to find belonging and medical equipment scattered throughout the room and patient sitting in chair next to bed asking to leave. Patient is unhappy with her care up to this point. This RN listened to patient and attempted to soothe them. This RN picked up the room while talking to the patient. This escorted patient to the restroom per patient desire. Patient was able to ambulate independently with stand by assist. Patient had a medium bowel movement. Patient declined multiple attempts and requests to assist patient to wipe with this RN and a female GENERAL SURGEON. Patient returns to the room in wheelchair but is able to pivot to and from the wheelchair independently. Patient had pulled their previous IV prior to this RN arrival and their vancomycin infusion hence wasn't going. This RN paused in the MAR at 7am for this RN arrival. This RN attempted a new IV twice without success. New IV placed by fellow RN Julius in right AC 20G. Patient is now willing to stay and be admitted. This RN gave verbal report to RAFAEL Ferrellcare asst.
--- NOTE | 2025-06-03 11:47 | PC.NURSE ---
Patient admitted for some cellulitis to her r. extremity, bilateral legs are both swollen with 3+ edema, right is red and warm. Patient is alert and oriented x4, sometimes talks in a kaila voice. She is appropriate and receptive to care.
[2025-06-03] MEDS: SODIUM CHLORIDE 0.9% 1,000 ML 100 ML IV ×2 (12:31→23:42)
[2025-06-03] MEDS: HEPARIN 5,000 UNIT/ML VIAL 5000 UNIT SUBCUT ×2 (12:31→23:42)
[2025-06-03 14:25] LABS: MRSA (Nasal) PCR DETECTED (Not Detect)
--- NOTE | 2025-06-03 15:41 | DIET.CONS ---
Dietary Consultation Note Admission Date: 06/03/2025 06:29 Assessment: 54 y F admitted for cellulitis. Dietitian consulted for states difficulty swallowing things like rice. Met with pt at bedside who confirms does have difficulty swallowing rice. Will just cough and spit it back up. Confirms that is the only food she has difficulty swallowing and is able to chew and swallow all other foods with no difficulty. Pt okays removing it from her diet while in hospital. Reports no further nutrition questions or concerns. Coordinated for no rice with kitchen via DFM. Ht: 156.21 cm Wt: 99.79 kg BMI: 40.8 Last BM: 06/03/25 (06/03/25 06:36) MNA: 11 Bryan Score: 16 Diet: 06/03/25 Breakfast General (Regular) Diet Diet Modifications: Labs: RBC 3.57 X10^6/uL (4.0-5.2) L 06/03/25 02:10 Hgb 9.8 g/dL (12.0-16.0) L 06/03/25 02:10 Hct 29.8 % (36-46) L 06/03/25 02:10 Creatinine 2.13 mg/dL (0.52-1.04) H 06/03/25 02:10 Lactate 1.0 mmol/L (0.7-2.1) 06/03/25 02:10 Electronically Signed by: Randi Grove 06/03/25 15:41 Clinical Dietitian [address] [id number]
[2025-06-04 01:23] VITALS: BP 110/62; PULSE 81; RESP 16; TEMP 36.4; O2SAT 96
[2025-06-04] MEDS: cefTRIAXone 2,000 MG in SODIUM CHLORIDE 0.9% 100 ML 200 MG IV (05:09)
[2025-06-04 05:13] LABS: Add Manual Diff / Slide Review NO; Blood Urea Nitrogen 60 mg/dL (7-17); Calcium 8.0 mg/dL (8.4-10.2); Carbon Dioxide 21 mmol/L (22-32); Chloride 107 mmol/L (98-107); Estimated Glomerular Filt Rate 27 mL/min (>60); Glucose 211 mg/dL (70-99); HEMOLYSIS < 15 (0-50); Hematocrit 25.4 % (36-46); Hemoglobin 8.7 g/dL (12.0-16.0); Lymphocytes Absolute Auto 900 /uL (1100-4500); Mean Corpuscular HGB Conc 34.2 % (30-36); Mean Corpuscular Hemoglobin 28.9 PG (26-34); Mean Corpuscular Volume 84.5 fL (80-100); Platelet Count 181 X10^3/uL (150-400); Potassium 3.8 mmol/L (3.4-5.1); Sodium 137 mmol/L (137-145)
[2025-06-04 06:31] VITALS: BP 120/59; PULSE 80; RESP 16; TEMP 36.7; O2SAT 98
--- NOTE | 2025-06-04 07:29 | PM.PN.1 ---
Subjective Subjective Interval history: S: She was less leg redness and pain. No other complaints. O: VSS No acute distress, normal speech. Some cognitive impairment. Lungs are clear with normal effort. Heart is regular, no murmur. Abdomen is soft Legs are free of edema, the right leg is less red and is now pink from the ankle to the knee. There are no focal findings. This is improved. A/P: 1. Right leg cellulitis, Improving. 2. CKD, Cr 2.13. 3. DM 2, stable 4. HTN, stable. PLAN: -continue IV antibiotics for another night. Anticipate probable discharge on oral antibiotics and June 05. -leg elevation -monitor renal function -glucose control with correctional lispro Full resuscitation Exam Vital Signs (past 8 hours): - 06/04/25 01:23 06/04/25 06:31 Temperature 97.6 F 98.0 F Pulse Rate 81 80 Respiratory Rate 16 16 Blood Pressure 110/62 120/59 L Pulse Oximetry 96 98 Oxygen Flow Rate 0 Oxygen Delivery Method Room Air Oxygen Flow Rate 0 Objective Labs 06/04/25 04:00 06/04/25 04:00 Labs: Laboratory Results - last 24 hr 06/03/25 06/04/25 11:55 04:00 WBC 10.8 D RBC 3.01 L Hgb 8.7 L Hct 25.4 L MCV 84.5 MCH 28.9 MCHC 34.2 RDW 13.7 Plt Count 181 Neut % (Auto) 87.8 H Lymph % (Auto) 8.0 L [place] % (Auto) 3.7 Eos % (Auto) 0.2 L Baso % (Auto) 0.3 Neut # (Auto) 9500 H Lymph # (Auto) 900 L [place] # (Auto) 400 Eos # (Auto) 0 Baso # (Auto) 0 Sodium 137 Potassium 3.8 Chloride 107 Carbon Dioxide 21 L BUN 60 H Creatinine 2.12 H Estimated GFR 27 L BUN/Creatinine Ratio 28.3 H Glucose 211 H Calcium 8.0 L Nasal Screen MRSA (PCR) Detected H PFSH Medical History Diabetic peripheral neuropathy CKD (chronic kidney disease) Normocytic anemia Diabetes mellitus HTN (hypertension) Social History household members: none Smoking Status: Never smoker Assessment & Plan Time-Based Coding :: [TOTAL MINUTES] spent with patient and on the chart (including review of chart, obtaining history, exam, reviewing outside data, placing orders, documenting exam and treatment plan, and counseling patient) on [DATE]. Quality VTE Deep Vein Thrombosis/Pulmonary Embolism Present on Admission: No
[2025-06-04] MEDS: SODIUM CHLORIDE 0.9% 1,000 ML 100 ML IV (09:47)
[2025-06-04] MEDS: HEPARIN 5,000 UNIT/ML VIAL 5000 UNIT SUBCUT (09:47)
[2025-06-04] MEDS: VANCOMYCIN 1,000 MG/200 ML PIGGYBACK 200 MG IV (09:50)
--- NOTE | 2025-06-04 10:50 | PC.NURSE ---
Patient is alert and oriented x4. She denies pain. R.arredondo is still warm and red to touch. She continues on iv antibiotics, and ivf. She is tolerating these well. On her light for little things, but pleasant. Resting comfortably.
--- NOTE | 2025-06-04 10:55 | CM.DANOTE ---
DCP Assessment Note: Pt is a 54yo female, resident of [place], is admitted for cellulitis of R lower limb and renal insufficiency. Pt is a resident at [facility]. Pt's Primary Care Provider is the provider at [facility] and insurance is [employer]. Reviewed chart and discussed with multidisciplinary team pt's medical status and initial discharge needs. DCP met w/patient at bedside; introduced self and role. Patient was found in bed, alert and oriented, cooperative with assessment. Pt confirmed living situation, patient explained some uneasy feelings about being away from her [facility] room due to some patient suspicion of bullying at the facility (other residents). Pt expressed preference in discharge back to [facility] when cleared. POTATO CHIP SORTER discussed possible home IV abx would need to be administered at a SNF and pt declined discussion about that. Pt did not note any history of SNF Rehab or Home health. POTATO CHIP SORTER sent H&P to [facility] via fax for continuity of care. Plan: Anticipating discharge back to [facility] when medically cleared, will need to coordinate transport with [facility] facility van. CM team will follow closely for coordination of discharge plans. ASTER Lee Discharge Planning/Care Management CM Discharge Assessment Start: 06/03/25 06:36 Freq: Status: Active Protocol: Document 06/04/25 10:52 MW (Rec: 06/04/25 10:55 MW Desktop) Discharge Planning Assessment Assigned Discharge EMILY Andrade Medicare Coordinator Provider [facility] PCP Insurance [employer] MCR,Medicaid DPOA/Assigned Dyan Darnell, Sister Designee Name Contact Information [phone] Advance Directives? No History Provided By Patient,Medical Record Has Patient been No admitted in last 30 days? Prior Living Assisted Living Arrangements Household Members none Type of Relies on Others transporation used prior to admit Facility Name [facility] Admitted From: Willing to Return to Yes Facility? Independent with ADL No 's Is patient alert and Yes oriented? DME Already Rented / FWW / Walker Owned Discharge Plan Home Review Status In Process Please Provide Date 06/04/25 Initial DC Assessment Was Performed Next Review Type Continued Stay Review
[2025-06-04] MEDS: INSULIN LISPRO 100 UNIT/ML 3ML VIAL SUBCUT ×2 (12:23→16:59)
[2025-06-04] MEDS: ACETAMINOPHEN 325 MG TABLET 650 MG PO (14:48)
[2025-06-04 15:00] VITALS: BP 183/88; PULSE 76; RESP 18; TEMP 36.6; O2SAT 99
--- NOTE | 2025-06-04 23:25 | PC.NURSE ---
Patient refused 2100 medications to include: Gabapentin, Heparin, and 3 units of Lispro insulin. Despite educating the patient, the patient became irate due to not having a nap all day! Patient did not want to take medications even after education and being notified that blood glucose was at 260. Patient was then left alone and patient stable at this time.
[2025-06-05 06:20] VITALS: BP 161/67; PULSE 83; RESP 18; TEMP 36.4; O2SAT 99
[2025-06-05 07:05] LABS: Add Manual Diff / Slide Review NO; Hematocrit 28.2 % (36-46); Hemoglobin 9.6 g/dL (12.0-16.0); Lymphocytes Absolute Auto 1100 /uL (1100-4500); Mean Corpuscular HGB Conc 34.1 % (30-36); Mean Corpuscular Hemoglobin 28.7 PG (26-34); Mean Corpuscular Volume 84.2 fL (80-100); Platelet Count 223 X10^3/uL (150-400)
[2025-06-05 07:19] LABS: Blood Urea Nitrogen 50 mg/dL (7-17); Calcium 9.0 mg/dL (8.4-10.2); Carbon Dioxide 19 mmol/L (22-32); Chloride 109 mmol/L (98-107); Estimated Glomerular Filt Rate 33 mL/min (>60); Glucose 204 mg/dL (70-99); HEMOLYSIS < 15 (0-50); Potassium 4.5 mmol/L (3.4-5.1); Sodium 139 mmol/L (137-145)
[2025-06-05 08:00] VITALS: BP 180/109; PULSE 85; RESP 20; TEMP 36.9; O2SAT 100
[2025-06-05] MEDS: LEVOTHYROXINE 100 MCG TABLET PO (08:12)
[2025-06-05] MEDS: ASPIRIN EC 81 MG TABLET PO (08:12)
[2025-06-05] MEDS: GABAPENTIN 100 MG CAPSULE PO (08:12)
[2025-06-05] MEDS: HEPARIN 5,000 UNIT/ML VIAL 5000 UNIT SUBCUT (08:12)
[2025-06-05] MEDS: LEVOTHYROXINE 75 MCG TABLET PO (08:12)
[2025-06-05] MEDS: cefTRIAXone 2,000 MG in SODIUM CHLORIDE 0.9% 100 ML 200 MG IV (08:13)
[2025-06-05] MEDS: INSULIN LISPRO 100 UNIT/ML 3ML VIAL SUBCUT ×2 (08:13→11:10)
--- NOTE | 2025-06-05 10:50 | P.DS_ITS ---
History of Present Illness History of Present Illness Chief complaint: fever Narrative: From ED doctor: 54-year-old female resident at [facility], noted by staff to have fever today. Right leg redness noted. Denies cough or shortness of breath. Denies painful or frequent urination. Denies flank pain or back pain. Denies headache neck pain facial pain, denies photophobia. Denies nausea or vomiting diarrhea, denies abdominal discomfort. S: Right leg redness and pain. History of MRSA. O: VSS NAD, alert and oriented, fluent speech, calm. Normocephalic skull, EOMI, anicteric sclera, symmetric pupils. Oropharynx unremarkable, no droop. Neck supple, midline trachea, no adenopathy. Lungs clear, normal rate and effort. Heart regular, no murmur gallop or rub. Abdomen is soft, non distended and non tender. Extremities are free of edema. Skin is free of rash or lesions. Accept the right leg is diffusely red and warm from the ankle to the knee. There was no fluctuance or open drainage. Joints are not swollen or deformed. Judgment appears to be normal. IMAGING: Vascular imaging: Limited study performed secondary to patient refusal to complete the study. No DVT at the level of the common femoral and upper thigh portion of the deep vein of the thigh. Comment: Final report is concordant with preliminary interpretation provided by [facility]. Foot X-ray: No plain film evidence of osteomyelitis. Question possible nondisplaced distal fibular fracture. Tib-Fib X-ray: 1. No osteomyelitis. 2. Question possible distal fibular fracture. CXR: No evidence acute pulmonary process. A/P: 1. Right leg cellulitis, Active. 2. CKD, Cr 2.13. 3. DM 2, stable 4. HTN, stable. Hospital course: She was treated with IV antibiotics and had good improvement of the leg. MRSA nares swab was positive. There was no fluctuance or induration noted on the leg. She was felt to be stable for discharge and we will be cover for both MRSA and streptococcal cellulitis. She was said to have been treated for lice recently, the follow up plan was communicated with the facility and social work so that they continue their protocol for retreatment and surveillance. [N], the patient has documentation of a left ventricle ejection fracture less than or equal to 40%, or moderately or severely reduced left ventricle systolic function. [N], the patient has a history of heart transplant or left ventricular assist device (LVAD). [N], the patient was prescribed an RUSSELL inhibitor at discharge or is already being taken. The patient was not prescribed an RUSSELL-inhibitor because of the following exception: NA [N], the patient was prescribed Metoprolol succinate, bisoprolol, or carvedilol at discharge. The patient was not prescribed Metoprolol succinate, bisoprolol, or carvedilol at discharge because of the following exception: NA Discharge Providers Provider Date of admission: 06/03/25 06:29 Discharge Date: 06/05/25 Primary care physician: Francesco Salomon MD Consults: 06/03/25 11: Consult to Dietitian, Adult Routine Comment: Reason For Exam: states difficulty swallowing things like rice Discharge provider: Francesco Salomon MD Summary Hospital Course Discharge Diagnosis: See above/ Status at Discharge Cognitive/behavioral status at discharge: oriented Functional status at discharge: uses cane/walker Overall status at discharge: patient is back to baseline Time Spent with Patient Time spent: Greater than 30 minutes Exam Vital Signs (past 8 hours): - 06/05/25 06:20 06/05/25 08:00 Temperature 97.6 F 98.4 F Pulse Rate 83 85 Respiratory Rate 18 20 Blood Pressure 161/67 H 180/109 H Pulse Oximetry 99 100 Oxygen Flow Rate 0 0 Oxygen Delivery Method Room Air Oxygen Flow Rate 0 Narrative Exam Narrative: Discharge exam: NAD, alert and oriented. Fluent speech. Lungs are clear, normal rate and effort. Heart is regular, no murmur gallop or rub. Abdomen is soft, non distended. Extremities are free of edema. The right leg is greatly improved, there is a very mild pink color today to the leg. Objective Labs 06/05/25 06:30 06/05/25 06:30 Labs: Laboratory Results - last 24 hr 06/04/25 06/04/25 06/04/25 12:08 16:48 20:40 WBC RBC Hgb Hct MCV MCH MCHC RDW Plt Count Neut % (Auto) Lymph % (Auto) [place] % (Auto) Eos % (Auto) Baso % (Auto) Neut # (Auto) Lymph # (Auto) [place] # (Auto) Eos # (Auto) Baso # (Auto) Sodium Potassium Chloride Carbon Dioxide BUN Creatinine Estimated GFR BUN/Creatinine Ratio Glucose POC Whole Bld Glucose 208 H 141 H 260 H D Calcium 06/05/25 06/05/25 06:30 07:22 WBC 9.0 RBC 3.35 L Hgb 9.6 L Hct 28.2 L MCV 84.2 MCH 28.7 MCHC 34.1 RDW 13.6 Plt Count 223 Neut % (Auto) 80.6 H Lymph % (Auto) 12.6 L [place] % (Auto) 4.6 Eos % (Auto) 1.6 L Baso % (Auto) 0.6 Neut # (Auto) 7300 H Lymph # (Auto) 1100 [place] # (Auto) 400 Eos # (Auto) 100 Baso # (Auto) 100 Sodium 139 Potassium 4.5 Chloride 109 H Carbon Dioxide 19 L BUN 50 H Creatinine 1.79 H Estimated GFR 33 L BUN/Creatinine Ratio 27.9 H Glucose 204 H POC Whole Bld Glucose 197 H Calcium 9.0 PFSH Medical History Diabetic peripheral neuropathy CKD (chronic kidney disease) Normocytic anemia Diabetes mellitus HTN (hypertension) Social History household members: none Smoking Status: Never smoker Discharge Assessment & Plan Assessment and Plan Assessment: See above. Plan of Treatment: Doxycycline 100 b.i.d. and cephalexin 500 q.i.d. for 7 additional days, encourage leg elevation. Discharge Plan Discharge Plan Patient Disposition: Assisted Living Transfer to: [facility] Provider Discharge Comment: Stable for discharge home on oral antibiotics. Discharge orders & Medications Discharge Orders: Discharge (Order); Ordered 06/05/25 Ordered By: Francesco Salomon Prescriptions: New doxycycline hyclate 100 mg capsule 100 mg PO BID Qty: 14 0RF cephalexin 500 mg capsule 500 mg PO QID Qty: 28 0RF Continued aspirin 81 mg tablet,delayed release (DR/EC) 81 mg PO DAILY gabapentin 100 mg capsule 100 mg PO TID Jardiance 10 mg tablet 10 mg PO DAILY levothyroxine 175 mcg tablet 175 mcg PO DAILY (DME) aleve See Rx Instructions .Route .MEDSUPPLY Rx Instructions: 440mg po q8hr prn pain acetaminophen 325 mg tablet 650 mg PO Q4H PRN (Reason: fever or pain) hydrocortisone 1 % cream 1 applic topical DAILY PRN (Reason: skin irritation) Patient Comments: scalp and upper back prn loperamide 2 mg capsule 4 mg PO Q8H PRN (Reason: loose stool) glucose oral tabs See Rx Instructions .ROUTE .COMPLEX Rx Instructions: 4 mg tab prn if blood sugar <70 repeat q15min prn; Follow up/Referrals: Francesco Salomon MD [Primary Care Provider, Internal Medicine] Discharge Health Status Multidrug resistant organism: MRSA Precautions: Contact Diet/Activity/Treatments Diet: Regular Visit Report/Discharge Packet Instructions: DI for Cellulitis -- Adult Stand Alone Forms: Patient Portal/API Discharge Data Primary Care Provider: Francesco Salomon Quality VTE Deep Vein Thrombosis/Pulmonary Embolism Present on Admission: No
--- NOTE | 2025-06-05 11:05 | CM.DPC ---
DCP Cont. Reviewed EMR and team rounds for pt's medical status and updates. Pt has been medically cleared to return to [facility] today. This TRIPE SCRAPER is trying to get a hold of the facility admin in order to schedule transportation and discuss concerns, left message.
[2025-06-05] MEDS: VANCOMYCIN 1,000 MG/200 ML PIGGYBACK 200 MG IV (11:09)
== END 2025-06-05 13:20 | DRG 603 ==
LOC: ED 03:49 → AC 06:59
PROVIDERS: Admitting Provider Internal Medicine; Emergency Provider Emergency Medicine; Family Provider Hospitalist; PCP Hospitalist; Visit Provider Internal Medicine
DX: L03.115 Cellulitis of right lower limb (principal); N18.9 Chronic kidney disease, unspecified; E11.22 Type 2 diabetes mellitus with diabetic chronic kidney disease; I12.9 Hypertensive chronic kidney disease with stage 1 through stage 4 chronic kidney disease, or unspecified chronic kidney disease; B95.62 Methicillin resistant Staphylococcus aureus infection as the cause of diseases classified elsewhere; Z79.84 Long term (current) use of oral hypoglycemic drugs
CPT/HCPCS: 36415; 71045; 73590; 73630; 80048; 80053; 82962; 83605; 83690; 84145; 85025; 85651; 86140; 87040; 87797; 93971; 96361; 96365; 96366; 96367; 99284; 99291; J0696; J1644; J1815; J3375; J7030; J7050

== ENCOUNTER → 2025-06-13 10:29 | Outpatient (CLI) | payer OTHER, MEDICAID, SELFPAY ==
[2025-06-03 06:36] VITALS: BMI 40.8
== END ==
LOC: WC 10:50
PROVIDERS: Family Provider Hospitalist; PCP Hospitalist; Referring Provider Hospitalist; Visit Provider Surgery
DX: E11.621 Type 2 diabetes mellitus with foot ulcer (principal); L97.512 Non-pressure chronic ulcer of other part of right foot with fat layer exposed; E11.42 Type 2 diabetes mellitus with diabetic polyneuropathy; R60.0 Localized edema; L84 Corns and callosities
CPT/HCPCS: 11042

== ENCOUNTER → 2025-06-18 14:27 | Outpatient (CLI) | payer OTHER, MEDICAID, SELFPAY ==
[2025-06-03 06:36] VITALS: BMI 40.8
== END ==
LOC: WC 14:28
PROVIDERS: Family Provider Hospitalist; PCP Hospitalist; Referring Provider Hospitalist; Visit Provider Surgery
DX: E11.621 Type 2 diabetes mellitus with foot ulcer (principal); L97.512 Non-pressure chronic ulcer of other part of right foot with fat layer exposed; R60.0 Localized edema; L84 Corns and callosities; Z91.199 Patient's noncompliance with other medical treatment and regimen due to unspecified reason
CPT/HCPCS: 11042; 99213

== ENCOUNTER → 2025-06-19 06:17 | Outpatient (ROUT) | payer OTHER, MEDICAID, SELFPAY ==
[2025-06-03 06:36] VITALS: BMI 40.8
[2025-06-19 07:49] LABS: Hematocrit 25.0 % (36-46); Hemoglobin 8.5 g/dL (12.0-16.0); Mean Corpuscular HGB Conc 34.1 % (30-36); Mean Corpuscular Hemoglobin 28.4 PG (26-34); Mean Corpuscular Volume 83.2 fL (80-100); Platelet Count 272 X10^3/uL (150-400)
[2025-06-19 08:10] LABS: Blood Urea Nitrogen 73 mg/dL (7-17); Calcium 8.2 mg/dL (8.4-10.2); Carbon Dioxide 23 mmol/L (22-32); Chloride 101 mmol/L (98-107); Estimated Glomerular Filt Rate 32 mL/min (>60); Glucose 363 mg/dL (70-99); HEMOLYSIS < 15 (0-50); Hemoglobin A1C% w Est Avg Glu 9.9 % (4.0-6.0); Potassium 4.8 mmol/L (3.4-5.1); Sodium 134 mmol/L (137-145)
== END ==
PROVIDERS: Family Provider Hospitalist; PCP Hospitalist
DX: E11.8 Type 2 diabetes mellitus with unspecified complications (principal); L03.90 Cellulitis, unspecified
CPT/HCPCS: 36415; 80048; 83036; 85027